=== PATIENT | female | born 1945 | race Caucasian/White ===

== ENCOUNTER 2021-01-15 23:00 | Emergency (ER) | payer MEDICARE, SELFPAY ==
--- NOTE | ~2021-01-15 | XR_ITS ---
EXAMINATION: XR CHEST CLINICAL INFORMATION: Productive cough COMPARISON: None TECHNIQUE: 2 views of the chest were obtained. FINDINGS: Lung volumes are symmetric. No focal consolidation is seen. Coarsened appearance of the interstitium is noted. No evidence of pneumothorax or significant pleural effusion. The cardiomediastinal contour is unremarkable. Degenerative changes are noted in the spine. XR/XR chest 2V IMPRESSION: No focal consolidation. Coarsened appearance of the interstitium which could reflect underlying chronic airways disease or potentially interstitial/atypical infection in the proper clinical setting.
[2021-01-16 00:27] VITALS: BP 182/77; PULSE 100; RESP 16; TEMP 36.7; O2SAT 93; BMI 21.9
--- NOTE | 2021-01-16 01:51 | ECG_ITS ---
Test Reason : SHORTNESS OF BREATH Blood Pressure : / mmHG Vent. Rate : 000 BPM Atrial Rate : 000 BPM P-R Int : 000 ms QRS Dur : 000 ms QT Int : 000 ms P-R-T Axes : 000 000 000 degrees QTc Int : 000 ms No QRS complexes found, no ECG analysis possible When compared with ECG of 16-JUN-2011 10:24, Current undetermined rhythm precludes rhythm comparison, needs review Referred By: Keyana Webber Electronically Signed By:
--- NOTE | 2021-01-16 01:52 | ED.URI ---
HPI - URI/Sore Throat General Chief Complaint: Upper Respiratory Symptoms Stated Complaint: Cough/Leg swelling Time Seen by Provider: 01/16/21 01:50 Source: patient Mode of arrival: ambulatory History of Present Illness HPI Narrative: 75-year-old female significant past medical history of hypertension who presents with 3 days of persistent coughing that she states she is unable to control and is productive of yellowish sputum without associated fever, chills, but patient states she has mild sore throat and states she is only having chest pain while coughing but otherwise does not have chest pain or palpitations and has been experiencing a decrease in appetite but denies any nausea, vomiting, abdominal discomfort/diarrhea and denies any urinary pain/burning/frequency. She denies any previous history of COPD/smoking history and states she that she has noted some mild swelling to bilateral ankles. Related Data Previous Rx's Medication Instructions Recorded lisinopril 20 mg tablet 20 mg PO DAILY 90 Days #90 tab 08/23/20 benzonatate [Tessalon Perles] 100 mg PO TID PRN #10 cap 01/16/21 doxycycline hyclate 100 mg PO BID 5 Days #10 cap 01/16/21 Allergies Allergy/AdvReac Type Severity Reaction Status Date / Time No Known Drug Allergies Allergy Unknown NONE Verified 08/23/20 11:11 [NO KNOWN DRUG ALLERGIES] Review of Systems Review of Systems: Pertinent positives and negatives as stated in HPI 10 point review of systems is otherwise negative. [facility] Past Medical History Source: nursing notes reviewed Medical History Benign essential hypertension Chronic kidney disease (CKD), stage III (moderate) History of seborrheic keratosis Pure hypercholesterolemia Surgical History No pertinent past surgical history Family History Family History Father No problems noted. Mother No problems noted. Brother In good health Son In good health Daughter In good health Social History Social History Alcohol intake: current Alcohol intake frequency: holidays/special occasions only Alcohol type: wine Advance Directives: No Advance Directives Information Provided: No Physical Exam Vital Signs: Vital Signs: Last Vital Signs Temp 98.0 F 01/16/21 00:27 Pulse 100 01/16/21 00:27 Resp 16 01/16/21 00:27 BP 182/77 H 01/16/21 00:27 Pulse Ox 93 01/16/21 00:27 Body Mass Index 21.9 VITAL SIGNS: Reviewed. GENERAL: Well developed, well nourished, in no acute distress. HEAD: Normocephalic/atraumatic EYES: PERRLA, EOMI EARS: Ext canals without abnormality, TMs non-bulging and non-erythematous NOSE: Nares patent bilateral OROPHARYNX: no oral lesions noted, posterior pharynx clear erythematous without noted tonsillar enlargement/erythema/exudates NECK: Supple, no adenopathy LUNGS: Normal breath sounds. No adventitious sounds or accessory muscle use. SpO2<93> CARDIOVASCULAR: Regular rate and rhythm without noted murmurs, no JVD but 1+ pitting edema to bilateral ankles ABDOMEN: Soft, non-tender, non-distended with bowel sounds. SKIN: Inspection of the skin reveals no rashes NEUROLOGIC: Alert and oriented x 4. Strength and sensation to light touch were grossly intact x 4. Course Course Course Narrative: 75-year-old female with history and clinical presentation consistent with viral syndrome, pneumonia. Review of all investigations and on re-evaluation there are acute findings of leukocytosis with chest x-ray findings in conjunction with patient's clinical exam and history suggestive of community-acquired pneumonia. Patient had received all COVID-19 vaccines and is not hypoxic or tachypneic. On re-evaluation patient is feeling better after having received cough suppressants as well as Tylenol. She is receiving initial dose of antibiotics here in the emergency room and then will be discharged with remaining course and instructions follow-up with primary care provider. MDM - URI/Sore Throat Lab Data Result diagrams: 01/16/21 02:58 01/16/21 02:58 Labs: Lab Results 01/16/21 01/16/21 01/16/21 Range/Units 02:58 02:58 02:58 WBC 12.2 H (4.8-10.8) X10*3/uL RBC 4.40 (4.20-5.50) X10*6/uL Hgb 12.8 (12.0-16.0) g/dl Hct 38.5 (37-47) % MCV 87.5 (80-98) fL MCH 29.1 (27.0-33.0) pg MCHC 33.2 (31.0-35.0) g/dl RDW 12.9 (11.0-16.0) % Plt Count 231 (160-400) X10*3/uL MPV 10.1 (9.4-12.3) fL Immature Gran % (Auto) 0.9 H (0.0-0.4) % Neut % (Auto) 77.4 H (45-73) % Lymph % (Auto) 13.1 L (20-40) % [place] % (Auto) 7.6 (2-11) % Eos % (Auto) 0.8 (0-4) % Baso % (Auto) 0.2 (0-2) % Lymph # (Auto) 1.6 (1.2-4.9) X10*3/uL [place] # (Auto) 0.9 (0.1-1.2) X10*3/uL Eos # (Auto) 0.1 (0.0-0.4) X10*3/uL Baso # (Auto) 0.0 (0.0-0.2) X10*3/uL Abs Immat Gran (auto) 0.11 H (0.00-0.03) X10*3/uL Absolute Neuts (auto) 9.4 H (2.0-8.3) X10*3/uL Absolute Nucleated RBC 0.000 (0.0-0.012) X10*3/uL Nucleated RBC % (auto) 0.0 (0.0-0.2) /100WBC Sodium 140 (135-145) mmol/L Potassium 3.6 (3.3-5.1) mmol/L Chloride 100 (96-108) mmol/L Carbon Dioxide 30 H (22-29) mmol/L Anion Gap 14 (12-20) BUN 12 (9-16) mg/dL Creatinine 0.79 (0.5-1.4) mg/dL Estim Creat Clear Calc 47.1 Estimated GFR > 60 Random Glucose 102 (60-115) mg/dL Calcium 9.0 (8.4-10.2) mg/dL Total Bilirubin 0.7 (0.0-1.0) mg/dL AST 25 (5-31) U/L ALT 23 (0-31) U/L Alkaline Phosphatase 99 (39-117) U/L Troponin I High Sens 7.2 (<3.5-17.0) ng/L B-Natriuretic Peptide < 10 (<100) pg/mL Total Protein 6.0 L (6.5-8.0) g/dL Albumin 3.4 L (3.5-5.0) g/dL ECG Data Attestation: I personally reviewed and interpreted this ECG as follows: Prior ECG tracings: available for review (06/16/2011 no acute changes on comparison) Interpretation: Sinus rhythm with PACs, HR-94, no STEMI, NC/QRS/QTC are within normal limits. Discharge Plan Discharge Clinical Impression: Community acquired pneumonia Patient Disposition: Home, Self-Care Instructions: Community Acquired Pneumonia (ED) Additional Instructions: 1. Resume all home medications as prescribed. 2. Continue to increase hydration especially with water. 3. Follow-up with your primary care provider in the next 1-2 days for re-evaluation and further outpatient management. 4. Recommend cool mist humidifier at the bedside during the night while sleeping. Return to the ER should you experience any worsening symptoms. Prescriptions: New doxycycline hyclate 100 mg capsule 100 mg PO BID 5 Days Qty: 10 RF: 0 benzonatate [Tessalon Perles] 100 mg capsule 100 mg PO TID PRN (Reason: cough) Qty: 10 RF: 0 No Action lisinopril 20 mg tablet 20 mg PO DAILY 90 Days Qty: 90 RF: 3 Referrals: Andrea Ruiz MD [Primary Care Provider] - 2 days (Re-evaluation for suspected community-acquired pneumonia, started on doxycycline.)
[2021-01-16 03:04] LABS: MANUAL DIFF FLAG NO
[2021-01-16 03:05] LABS: Basophils Percent Auto 0.2 % (0-2); Eosinophils Absolute Auto 0.1 X10*3/uL (0.0-0.4); Eosinophils Percent Auto 0.8 % (0-4); Hematocrit 38.5 % (37-47); Hemoglobin 12.8 g/dl (12.0-16.0); Imm Gran Abs Auto 0.11 X10*3/uL (0.00-0.03); Imm Gran Pct Auto 0.9 % (0.0-0.4); Lymphocytes Absolute Auto 1.6 X10*3/uL (1.2-4.9); Lymphocytes Percent Auto 13.1 % (20-40); Mean Corpuscular HGB Conc 33.2 g/dl (31.0-35.0); Mean Corpuscular Hemoglobin 29.1 pg (27.0-33.0); Mean Corpuscular Volume 87.5 fL (80-98); Mean Platelet Volume 10.1 fL (9.4-12.3); Monocytes Absolute Auto 0.9 X10*3/uL (0.1-1.2); Monocytes Percent Auto 7.6 % (2-11); Neutrophils Absolute Auto 9.4 X10*3/uL (2.0-8.3); Neutrophils Percent Auto 77.4 % (45-73); Platelet Count 231 X10*3/uL (160-400); Red Cell Distribution Width 12.9 % (11.0-16.0); White Blood Count 12.2 X10*3/uL (4.8-10.8)
[2021-01-16 03:40] LABS: B Type Natriuretic Peptide < 10 pg/mL (<100); Troponin-I High Sensitivity 7.2 ng/L (<3.5-17.0)
[2021-01-16] MEDS: Benzonatate 100 MG CAPSULE PO (03:45)
[2021-01-16 04:03] LABS: Alanine Aminotransferase 23 U/L (0-31); Albumin Level 3.4 g/dL (3.5-5.0); Alkaline Phosphatase 99 U/L (39-117); Anion Gap 14 (12-20); Aspartate Amino Transferase 25 U/L (5-31); Bilirubin Total 0.7 mg/dL (0.0-1.0); Blood Urea Nitrogen 12 mg/dL (9-16); Carbon Dioxide 30 mmol/L (22-29); Chloride 100 mmol/L (96-108); Creatinine Clr Calc Pharmacy 47.1; Estimated Glomerular Filt Rate > 60; Glucose Random 102 mg/dL (60-115); Potassium 3.6 mmol/L (3.3-5.1); Sodium 140 mmol/L (135-145)
[2021-01-16] MEDS: Acetaminophen 325 MG TABLET 975 MG PO (05:55)
== END 2021-01-16 05:57 | disposition home or self-care (01) ==
PROVIDERS: Emergency Provider Student in an Organized Health Care Education/Training Program; PCP Internal Medicine
DX: J18.9 Pneumonia, unspecified organism (principal); I12.9 Hypertensive chronic kidney disease with stage 1 through stage 4 chronic kidney disease, or unspecified chronic kidney disease; N18.30 Chronic kidney disease, stage 3 unspecified; Z79.899 Other long term (current) drug therapy
CPT/HCPCS: 36415; 71046; 80053; 83880; 84484; 85025; 93005; 99283

== ENCOUNTER 2021-02-13 10:25 | Outpatient (REF) | payer MEDICARE, SELFPAY ==
[2021-02-13 11:22] LABS: MANUAL DIFF FLAG NO
[2021-02-13 11:34] LABS: Basophils Percent Auto 0.5 % (0-2); Eosinophils Absolute Auto 0.4 X10*3/uL (0.0-0.4); Eosinophils Percent Auto 6.3 % (0-4); Hematocrit 43.1 % (37-47); Imm Gran Abs Auto 0.03 X10*3/uL (0.00-0.03); Imm Gran Pct Auto 0.5 % (0.0-0.4); Lymphocytes Absolute Auto 2.2 X10*3/uL (1.2-4.9); Lymphocytes Percent Auto 34.2 % (20-40); Mean Corpuscular HGB Conc 32.5 g/dl (31.0-35.0); Mean Corpuscular Hemoglobin 29.2 pg (27.0-33.0); Mean Corpuscular Volume 89.8 fL (80-98); Monocytes Absolute Auto 0.5 X10*3/uL (0.1-1.2); Monocytes Percent Auto 8.5 % (2-11); Neutrophils Absolute Auto 3.2 X10*3/uL (2.0-8.3); Platelet Count 191 X10*3/uL (160-400); Red Cell Distribution Width 13.6 % (11.0-16.0); White Blood Count 6.4 X10*3/uL (4.8-10.8)
[2021-02-13 11:35] LABS: Glucose Urine UA NEG (NEG); Leukocyte Esterase Urine 1+ (NEG); Nitrite Urine NEG (NEG); UACC Culture Trigger YES; Urine Blood TRACE (NEG); Urine Ketones NEG (NEG); Urine Protein NEG (NEG-TRACE)
[2021-02-13 11:38] LABS: Appearance Urine CLEAR; Color Urine YELLOW
[2021-02-13 11:46] LABS: Mucus Urine TRACE /LPF; RBC Urine 0-2 /HPF (0); Squamous Epithelial Cell Urine TRACE /LPF; WBC Urine 0-2 /HPF (0-4)
[2021-02-13 12:43] LABS: Alanine Aminotransferase 12 U/L (0-31); Alkaline Phosphatase 67 U/L (39-117); Anion Gap 13 (12-20); Aspartate Amino Transferase 18 U/L (5-31); Blood Urea Nitrogen 12 mg/dL (9-16); Calcium 9.4 mg/dL (8.4-10.2); Carbon Dioxide 28 mmol/L (22-29); Chloride 105 mmol/L (96-108); Cholesterol 207 mg/dL; Estimated Glomerular Filt Rate > 60; Glucose Fasting 94 mg/dL (60-99); HDL Cholesterol 50 mg/dL; LDL Cholesterol Calculated 144 mg/dl; Potassium 4.1 mmol/L (3.3-5.1); Sodium 142 mmol/L (135-145); Total Protein 6.6 g/dL (6.5-8.0); Triglycerides 66 mg/dL
== END 2021-02-13 10:26 | disposition home or self-care (01) ==
LOC: HO.LAB 10:25
PROVIDERS: PCP Internal Medicine; Visit Provider Internal Medicine
DX: I12.9 Hypertensive chronic kidney disease with stage 1 through stage 4 chronic kidney disease, or unspecified chronic kidney disease (principal); N18.31 Chronic kidney disease, stage 3a; E78.00 Pure hypercholesterolemia, unspecified
CPT/HCPCS: 36415; 80053; 80061; 81001; 84443; 85025; 87086; 87147

== ENCOUNTER 2021-08-07 10:54 | Outpatient (REF) | payer MEDICARE, SELFPAY ==
[2021-08-07 12:01] LABS: Appearance Urine CLEAR; Color Urine YELLOW; Glucose Urine UA NEG (NEG); Leukocyte Esterase Urine TRACE (NEG); Nitrite Urine NEG (NEG); UACC Culture Trigger YES; Urine Blood TRACE (NEG); Urine Ketones NEG (NEG); Urine Protein NEG (NEG-TRACE)
[2021-08-07 12:09] LABS: Bacteria Urine TRACE /LPF; Mucus Urine 1+ /LPF; Squamous Epithelial Cell Urine 1+ /LPF
[2021-08-07 12:44] LABS: Vitamin D 25-OH Total 21.2 ng/mL (>30)
[2021-08-07 12:48] LABS: Alanine Aminotransferase 14 U/L (0-31); Alkaline Phosphatase 67 U/L (39-117); Anion Gap 10 (12-20); Aspartate Amino Transferase 20 U/L (5-31); Bilirubin Total 0.9 mg/dL (0.0-1.0); Carbon Dioxide 31 mmol/L (22-29); Chloride 106 mmol/L (96-108); Cholesterol 195 mg/dL; Estimated Glomerular Filt Rate > 60; Glucose Fasting 98 mg/dL (60-99); HDL Cholesterol 51 mg/dL; LDL Cholesterol Calculated 127 mg/dl; Potassium 4.1 mmol/L (3.3-5.1); Sodium 143 mmol/L (135-145); Total Protein 6.3 g/dL (6.5-8.0); Triglycerides 86 mg/dL
[2021-08-07 15:47] LABS: Blood Urea Nitrogen 13 mg/dL (9-16); Calcium 9.8 mg/dL (8.4-10.2)
== END 2021-08-07 10:55 | disposition home or self-care (01) ==
LOC: HO.LAB 10:54
PROVIDERS: PCP Internal Medicine; Visit Provider Internal Medicine
DX: E78.00 Pure hypercholesterolemia, unspecified (principal); E55.9 Vitamin D deficiency, unspecified
CPT/HCPCS: 36415; 80053; 80061; 81001; 81003; 82306; 87086

== ENCOUNTER 2021-10-23 11:01 | Outpatient (REF) | payer MEDICARE, SELFPAY ==
--- NOTE | ~2021-10-23 | MM_ITS ---
EXAMINATION: MM SCREENING DIGITAL BREAST TOMOSYNTHESIS, BILATERAL CLINICAL INFORMATION: Screening. Asymptomatic. Family history breast cancer, daughter. The lifetime risk of breast cancer based on the Tyrer-Cuzick Model is 4%. COMPARISON: Mammography: 06/24/2019, 06/18/2018, 05/27/2017 TECHNIQUE: Digital breast tomosynthesis is performed in both the craniocaudal and mediolateral oblique views along with computer-aided detection (CAD). Synthesized 2D images are generated from the tomosynthesis. FINDINGS: There are scattered areas of fibroglandular density (ACR BI-RADS breast composition Category b). There are no significant masses, abnormal calcifications, or other abnormalities. No developing density or architectural abnormality. No significant changes. MM/MM tomosynthesis screening BI IMPRESSION: No mammographic evidence of malignancy. ASSESSMENT: BI-RADS 1: Negative RECOMMENDATION: Routine annual mammography screening. This patient's information was entered into a reminder system with a target due date for their next mammogram.
== END 2021-10-23 11:02 | disposition home or self-care (01) ==
LOC: HO.MAMMO 11:01
PROVIDERS: Visit Provider Internal Medicine
DX: Z12.31 Encounter for screening mammogram for malignant neoplasm of breast (principal)
CPT/HCPCS: 77063; 77067

== ENCOUNTER 2021-11-27 10:09 | Outpatient (REF) | payer MEDICARE, SELFPAY ==
[2021-11-27 12:09] LABS: Alanine Aminotransferase 14 U/L (0-31); Alkaline Phosphatase 68 U/L (39-117); Anion Gap 11 (12-20); Aspartate Amino Transferase 19 U/L (5-31); Bilirubin Total 0.7 mg/dL (0.0-1.0); Blood Urea Nitrogen 14 mg/dL (9-16); Calcium 9.6 mg/dL (8.4-10.2); Carbon Dioxide 30 mmol/L (22-29); Chloride 105 mmol/L (96-108); Cholesterol 191 mg/dL; Estimated Glomerular Filt Rate > 60; Glucose Fasting 95 mg/dL (60-99); HDL Cholesterol 53 mg/dL; LDL Cholesterol Calculated 121 mg/dl; Potassium 4.1 mmol/L (3.3-5.1); Sodium 142 mmol/L (135-145); Total Protein 6.4 g/dL (6.5-8.0); Triglycerides 88 mg/dL
[2021-11-27 12:20] LABS: TSH reflex Free T4 1.77 uIU/mL (0.32-4.0); Vitamin D 25-OH Total 23.9 ng/mL (>30)
== END 2021-11-27 10:10 | disposition home or self-care (01) ==
LOC: HO.LAB 10:09
PROVIDERS: PCP Internal Medicine; Visit Provider Nurse Practitioner Family
DX: E78.00 Pure hypercholesterolemia, unspecified (principal); I12.9 Hypertensive chronic kidney disease with stage 1 through stage 4 chronic kidney disease, or unspecified chronic kidney disease; N18.9 Chronic kidney disease, unspecified; Z13.29 Encounter for screening for other suspected endocrine disorder
CPT/HCPCS: 36415; 80053; 80061; 82306; 84443

== ENCOUNTER 2022-03-11 10:48 | Outpatient (REF) | payer MEDICARE, SELFPAY ==
[2022-03-11 12:58] LABS: Vitamin D 25-OH Total 36.1 ng/mL (>30)
== END 2022-03-11 10:49 | disposition home or self-care (01) ==
LOC: HO.LAB 10:48
PROVIDERS: Nurse Practitioner Family; PCP Internal Medicine; Visit Provider Internal Medicine
DX: R79.89 Other specified abnormal findings of blood chemistry (principal)
CPT/HCPCS: 36415; 82306

== ENCOUNTER 2022-05-01 22:43 | Inpatient (IN) | payer MEDICARE, SELFPAY ==
--- NOTE | ~2022-05-01 | CT_ITS ---
EXAMINATION: NONCONTRAST AND CONTRAST-ENHANCED CT OF THE ABDOMEN AND PELVIS GI BLEED INDICATION: Left lower quadrant pain, question GI bleed COMPARISON: None TECHNIQUE: 80 mL Omnipaque 350 IV contrast was utilized. Multidetector helical imaging was performed through the abdomen and pelvis prior to and following contrast administration per GI bleed protocol. Coronal and sagittal reformatted images were created at the technologist workstation. DLP: 862 mGy-cm DOSE LOWERING TECHNIQUES: This CT examination was performed using dose optimization techniques as appropriate, variously including the following: - Automated exposure control - Adjustment of mA and/or kV according to patient size (this includes techniques or standardized protocols for targeted exams were dose is matched to indication/reason for exam; i.e. extremities or head) - Use of iterative reconstruction technique FINDINGS: The lung bases are clear. The liver is homogeneous in attenuation without intrahepatic biliary ductal dilatation. The gallbladder is unremarkable. The spleen, pancreas, and adrenal glands are within normal limits. Bilateral nephrograms are symmetric. No hydronephrosis. No obstructing renal or ureteral calculi are present. The urinary bladder is unremarkable. The uterus and adnexa are unremarkable. There is a prominent thick-walled appearance of the distal transverse colon and entire descending colon with surrounding stranding, consistent with colitis. On postcontrast imaging there is diffuse mucosal enhancement throughout this inflamed colon, which limits evaluation for possible superimposed active bleeding. There may be an additional inflamed segment of collapsed ascending colon. Sigmoid colon diverticula are noted. No evidence of bowel obstruction. The appendix is unremarkable. No free fluid or free air is present. There is atherosclerotic calcification along the aorta and iliac arteries. There is multifocal dilation of the infrarenal aorta up to 2.7 cm. No retroperitoneal or pelvic lymphadenopathy is seen. Degenerative changes are noted in the spine. CT/CT gi bleed abd pel wo/w IVcon IMPRESSION: 1. Prominent inflammation extending from the distal transverse colon to the distal descending colon, consistent with colitis. There is diffuse mucosal enhancement throughout this region on postcontrast imaging, which limits evaluation for possible superimposed active hemorrhage. 2. Thick-walled segment of collapsed ascending colon, which may also reflect a segment of colitis. However, correlation with recent or follow-up colonoscopy is advised to exclude an underlying mass lesion.
[2022-05-01 23:05] VITALS: BP 189/82; PULSE 96; RESP 17; TEMP 36.8; O2SAT 99; BMI 21.2
[2022-05-01 23:16] LABS: MANUAL DIFF FLAG NO
[2022-05-01 23:18] LABS: Basophils Percent Auto 0.2 % (0-2); Eosinophils Percent Auto 0.2 % (0-4); Hematocrit 46.2 % (37.0-47.0); Hemoglobin 14.9 g/dl (12.0-16.0); Imm Gran Abs Auto 0.06 X10*3/uL (0.00-0.03); Imm Gran Pct Auto 0.5 % (0.0-0.4); Lymphocytes Absolute Auto 1.7 X10*3/uL (1.2-4.9); Lymphocytes Percent Auto 13.1 % (20-40); Mean Corpuscular HGB Conc 32.3 g/dl (31.0-35.0); Mean Corpuscular Hemoglobin 28.8 pg (27.0-33.0); Mean Corpuscular Volume 89.2 fL (80.0-98.0); Mean Platelet Volume 10.1 fL (9.4-12.3); Monocytes Absolute Auto 0.6 X10*3/uL (0.1-1.2); Monocytes Percent Auto 4.2 % (2-11); Neutrophils Absolute Auto 10.9 x10*3/uL (2.0-8.3); Neutrophils Percent Auto 81.8 % (45-73); Platelet Count 178 X10*3/uL (160-400); Red Blood Count 5.18 X10*6/uL (4.20-5.50); Red Cell Distribution Width 13.2 % (11.0-16.0); White Blood Count 13.3 X10*3/uL (4.8-10.8)
--- NOTE | 2022-05-01 23:35 | ED_ITS ---
HPI - General Adult General Chief complaint: GI Bleed Stated complaint: ?Vaginal bleeding Time Seen by Provider: 05/01/22 23:18 Source: patient Limitations: no limitations History of Present Illness HPI narrative: This is a 76-year-old female who passed a number of clots this evening, some of them half dollar sized. The patient has OC of left lower quadrant abdominal pain. The patient thought the clots were passed via her vagina. She does not think that she passed them via her rectum. She did have an episode of feeling lightheaded. She denies any chest pain or shortness of breath. She is not on any blood thinners. She denies any prior history of GI bleed. She has no history of hysterectomy or oophorectomy. Related Data Previous Rx's Medication Instructions Recorded lisinopril 30 mg tablet 30 mg PO DAILY #90 tabs 01/24/22 amlodipine 5 mg tablet 5 mg PO DAILY 90 days #90 tabs 03/19/22 cholecalciferol (vitamin D3) 25 25 mcg PO DAILY 90 days #90 tabs 03/19/22 mcg (1,000 unit) tablet Allergies Allergy/AdvReac Type Severity Reaction Status Date / Time No Known Drug Allergies Allergy Unknown NONE Verified 05/01/22 23:08 [NO KNOWN DRUG ALLERGIES] Review of Systems Review of Systems: Yes all other systems are reviewed and are negative Constitutional: Constitutional: Reports as per HPI and Denies fever(s) Eyes: Eyes: Reports as per HPI and Reports no additional eye complaints ENT: Reports system reviewed and no additional complaints, except as documented, Reports as per HPI, Denies nasal congestion, Denies nasal discharge and Denies sore throat Cardiovascular: Cardiovascular: Reports as per HPI, Denies chest pain and Denies dyspnea Respiratory: Respiratory: Reports as per HPI, Denies cough and Denies dyspnea Gastrointestinal: Gastrointestinal: Reports as per HPI, Reports abdominal pain (Left lower quadrant), Denies diarrhea and Denies vomiting Genitourinary: Genitourinary: Reports as per HPI, Denies hematuria, Denies urinary frequency and Denies dysuria Musculoskeletal: Musculoskeletal: Reports no additional musculoskeletal complaints and Denies numbness Integumentary/Breasts: Skin/Breast: Reports as per HPI and Denies rash Neurologic: Reports as per HPI, Denies focal weakness and Denies numbness Psychiatric: Psychiatric: Reports no additional psychiatric complaints and Reports as per HPI Endocrine: Endocrine: Reports no additional endocrine complaints and Reports as per HPI Hematologic/Lymphatic: Hematologic/Lymphatic: Reports no additional hematologic/lymphatic complaints, Reports as per HPI and Reports other (No peripheral edema) [facility] Past Medical History Medical History (Updated 05/02/22 @ 01:16 by John Nice MD) Benign essential hypertension Chronic kidney disease Chronic kidney disease (CKD), stage III (moderate) History of seborrheic keratosis Otitis media of left ear Pure hypercholesterolemia Vitamin D deficiency Surgical History No pertinent past surgical history Family History Family History Father No problems noted. Mother No problems noted. Brother In good health Son In good health Daughter In good health Social History Social History Housing: House Alcohol intake: current Alcohol intake frequency: holidays/special occasions only Alcohol type: wine Patient Tobacco Use Status: Never used Tobacco e-Cigarette/Vaping Use: Never Used Second Hand Smoke Exposure: Yes Advance Directives: No Advance Directives Information Provided: Yes service: No Current occupational status: retired Cognitive needs: No Hearing needs: No Vision needs: Yes Physical Exam ED Vital Signs: Vital Signs - 24 hr 05/01/22 23:05 05/02/22 02:18 Temperature 98.2 F 98.1 F Pulse Rate 96 88 Respiratory Rate 17 16 Blood Pressure 189/82 H 169/86 H Pulse Oximetry 99 97 Oxygen Delivery Method Room Air Room Air BMI result Body Mass Index 21.2 Const General: no acute distress Orientation/consciousness: patient oriented x3 HENMT Head: Yes normal to inspection General nose exam: Normal external nose present Mouth: moist mucous membranes Throat: Yes posterior oropharynx normal, Yes tonsils normal and Yes uvula midline Eyes Eyelids: Yes eyelids normal Conjunctivae: conjunctivae normal Pupils: Equal, round and reactive pupils present Neck Neck: Yes supple Resp Effort & Inspection: normal respiratory effort Auscultation: clear to auscultation bilaterally Cardio Rate: regular rate Rhythm: regular rhythm Heart sounds: S1 normal heart sound present, S2 normal heart sound present, no gallops, no murmurs and no rubs GI Inspection: No distended Palpation (GI): Soft to palpation and nontender Auscultation: normal bowel sounds Rectal Exam - Female: visual inspection normal and heme positive stool (Dark red blood evident on rectal exam) Rectal exam heme positive - female: gross blood External Female Exam: normal external appearance Bimanual exam- vagina & uterus: other (No blood in the vagina) Skin General skin exam: other (Warm and dry) Neuro General: patient oriented x3 and CN's II-XI intact bilaterally Cranial nerves: Yes Equal, round and reactive pupils present Extrem General: Yes no pedal edema Psych Affect: normal affect Attitude: cooperative Medical Decision Making MDM Narrative Medical decision making narrative: Patient with acute onset of lower GI bleeding this evening, repeated the passing clots. Patient also has associated left lower quadrant pain. Possible diverticular bleeding. H&H normal. White blood cell count mildly elevated at 13. CT scan of the abdomen and pelvis, GI bleed protocol pending. Case was discussed with Dr. Diop who agreed with admission to the hospital unless there is evidence of brisk bleeding on CT. The patient has had repeat episodes of passing blood when she has gone to the bathroom here in the ED. vital signs remained stable and her repeat hemoglobin and hematocrit are pending. Patient to be admitted to the hospitalist service. Lab Data Lab results reviewed: Yes I reviewed the patient's lab results. Result diagrams: 05/01/22 23:12 05/01/22 23:12 Labs: Lab Results 05/01/22 05/01/22 05/01/22 Range/Units 23:12 23:12 23:40 WBC 13.3 H (4.8-10.8) X10*3/uL RBC 5.18 (4.20-5.50) X10*6/uL Hgb 14.9 (12.0-16.0) g/dl Hct 46.2 (37.0-47.0) % MCV 89.2 (80.0-98.0) fL MCH 28.8 (27.0-33.0) pg MCHC 32.3 (31.0-35.0) g/dl RDW 13.2 (11.0-16.0) % Plt Count 178 (160-400) X10*3/uL MPV 10.1 (9.4-12.3) fL Immature Gran % (Auto) 0.5 H (0.0-0.4) % Neut % (Auto) 81.8 H (45-73) % Lymph % (Auto) 13.1 L (20-40) % [place] % (Auto) 4.2 (2-11) % Eos % (Auto) 0.2 (0-4) % Baso % (Auto) 0.2 (0-2) % Lymph # (Auto) 1.7 (1.2-4.9) X10*3/uL [place] # (Auto) 0.6 (0.1-1.2) X10*3/uL Eos # (Auto) 0.0 (0.0-0.4) X10*3/uL Baso # (Auto) 0.0 (0.0-0.2) X10*3/uL Abs Immat Gran (auto) 0.06 H (0.00-0.03) X10*3/uL Absolute Neuts (auto) 10.9 H (2.0-8.3) x10*3/uL Absolute Nucleated RBC 0.000 (0.0-0.012) X10*3/uL Nucleated RBC % (auto) 0.0 (0.0-0.2) /100WBC PT (10.0-13.1) SEC INR (0.9-1.1) APTT (26.0-36.4) SEC Sodium 142 (135-145) mmol/L Potassium 4.1 (3.3-5.1) mmol/L Chloride 103 (96-108) mmol/L Carbon Dioxide 23 (22-29) mmol/L Anion Gap 20 (12-20) BUN 17 H (9-16) mg/dL Creatinine 1.02 (0.5-1.4) mg/dL Estim Creat Clear Calc 35.9 Estimated GFR 52 Random Glucose 126 H (60-115) mg/dL Calcium 9.7 (8.4-10.2) mg/dL Total Bilirubin 0.9 (0.0-1.0) mg/dL AST 23 (5-31) U/L ALT 16 (0-31) U/L Alkaline Phosphatase 77 (39-117) U/L Total Protein 7.3 (6.5-8.0) g/dL Albumin 4.6 (3.5-5.0) g/dL Urine Color Dark Yellow Urine Appearance Clear Urine pH 5.0 (5.0-9.0) Ur Specific [place] 1.020 (1.005-1.025) Urine Protein Trace (Neg-Trace) mg/dL Urine Glucose (UA) Negative (Negative) mg/dL Urine Ketones Trace (Negative) mg/dL Urine Blood Trace H (Negative) Urine Nitrite Negative (Negative) Ur Leukocyte Esterase Trace H (Negative) Urine RBC 0-2 (0-2) /HPF Urine WBC 0-5 (0-5) /HPF Ur Squamous Epith Cells 3-5 (0-2) /HPF Urine Bacteria None Seen (None Seen) Hyaline Casts 6-10 (0-2) /LPF Blood Type 05/02/22 05/02/22 Range/Units 01:50 01:50 WBC (4.8-10.8) X10*3/uL RBC (4.20-5.50) X10*6/uL Hgb (12.0-16.0) g/dl Hct (37.0-47.0) % MCV (80.0-98.0) fL MCH (27.0-33.0) pg MCHC (31.0-35.0) g/dl RDW (11.0-16.0) % Plt Count (160-400) X10*3/uL MPV (9.4-12.3) fL Immature Gran % (Auto) (0.0-0.4) % Neut % (Auto) (45-73) % Lymph % (Auto) (20-40) % [place] % (Auto) (2-11) % Eos % (Auto) (0-4) % Baso % (Auto) (0-2) % Lymph # (Auto) (1.2-4.9) X10*3/uL [place] # (Auto) (0.1-1.2) X10*3/uL Eos # (Auto) (0.0-0.4) X10*3/uL Baso # (Auto) (0.0-0.2) X10*3/uL Abs Immat Gran (auto) (0.00-0.03) X10*3/uL Absolute Neuts (auto) (2.0-8.3) x10*3/uL Absolute Nucleated RBC (0.0-0.012) X10*3/uL Nucleated RBC % (auto) (0.0-0.2) /100WBC PT 11.7 (10.0-13.1) SEC INR 1.0 (0.9-1.1) APTT 33.9 (26.0-36.4) SEC Sodium (135-145) mmol/L Potassium (3.3-5.1) mmol/L Chloride (96-108) mmol/L Carbon Dioxide (22-29) mmol/L Anion Gap (12-20) BUN (9-16) mg/dL Creatinine (0.5-1.4) mg/dL Estim Creat Clear Calc Estimated GFR Random Glucose (60-115) mg/dL Calcium (8.4-10.2) mg/dL Total Bilirubin (0.0-1.0) mg/dL AST (5-31) U/L ALT (0-31) U/L Alkaline Phosphatase (39-117) U/L Total Protein (6.5-8.0) g/dL Albumin (3.5-5.0) g/dL Urine Color Urine Appearance Urine pH (5.0-9.0) Ur Specific [place] (1.005-1.025) Urine Protein (Neg-Trace) mg/dL Urine Glucose (UA) (Negative) mg/dL Urine Ketones (Negative) mg/dL Urine Blood (Negative) Urine Nitrite (Negative) Ur Leukocyte Esterase (Negative) Urine RBC (0-2) /HPF Urine WBC (0-5) /HPF Ur Squamous Epith Cells (0-2) /HPF Urine Bacteria (None Seen) Hyaline Casts (0-2) /LPF Blood Type O Positive Discharge Plan Discharge Clinical Impression: Acute lower gastrointestinal bleeding Patient Disposition: Admitted As Inpatient
[2022-05-01 23:39] LABS: Alanine Aminotransferase 16 U/L (0-31); Albumin Level 4.6 g/dL (3.5-5.0); Alkaline Phosphatase 77 U/L (39-117); Anion Gap 20 (12-20); Aspartate Amino Transferase 23 U/L (5-31); Bilirubin Total 0.9 mg/dL (0.0-1.0); Blood Urea Nitrogen 17 mg/dL (9-16); Calcium 9.7 mg/dL (8.4-10.2); Carbon Dioxide 23 mmol/L (22-29); Chloride 103 mmol/L (96-108); Creatinine Clr Calc Pharmacy 35.9; Estimated Glomerular Filt Rate 52; Glucose Random 126 mg/dL (60-115); Potassium 4.1 mmol/L (3.3-5.1); Sodium 142 mmol/L (135-145); Total Protein 7.3 g/dL (6.5-8.0)
[2022-05-01] MEDS: 0.9 % Sodium Chloride 500 ML IV (23:46)
[2022-05-01 23:49] LABS: Appearance Urine Clear; Color Urine Dark Yellow; Glucose Urine UA Negative (Negative); Leukocyte Esterase Urine Trace (Negative); Nitrite Urine Negative (Negative); UMIC TRIGGER UACC YES; Urine Blood Trace (Negative); Urine Ketones Trace mg/dL (Negative); Urine Protein Trace mg/dL (Neg-Trace)
[2022-05-02 00:01] LABS: Bacteria Urine None Seen (None Seen); RBC Urine 0-2 /HPF (0-2); WBC Urine 0-5 /HPF (0-5)
[2022-05-02] MEDS: iohexoL 350 MG/ML 100 ML INFUS..BTL 80 ML IV (01:40)
[2022-05-02 02:04] LABS: Prothrombin Time 11.7 SEC (10.0-13.1)
[2022-05-02 02:07] LABS: Partial Thromboplastin Time 33.9 SEC (26.0-36.4)
[2022-05-02 02:18] VITALS: BP 169/86; PULSE 88; RESP 16; TEMP 36.7; O2SAT 97
[2022-05-02] MEDS: metroNIDAZOLE/NS 500 MG/100 ML PIGGYBACK 100 MG IV ×3 (02:53→20:30)
[2022-05-02] MEDS: Morphine Sulfate 2 MG/ML CARTRIDGE IVPUSH (02:54)
[2022-05-02] MEDS: Piperacillin Sodium/Tazobactam 3.375 GM in 0.9 % Sodium Chloride 50 ML IV (03:42)
[2022-05-02 03:48] LABS: Hematocrit 40.5 % (37.0-47.0); Hemoglobin 13.4 g/dl (12.0-16.0)
[2022-05-02 04:05] LABS: COVID-19 Test Negative (Negative)
--- NOTE | 2022-05-02 04:05 | P.HPHOSP_ITS ---
History of Present Illness Date of Service: 05/02/22 Chief Complaint: blood clots 76-year-old female with past medical history of hypertension, CKD stage 3, presents the hospital with complaints of blood per rectum as well as left quadrant abdominal pain. Patient reports that she was doing very well up until 17:00 when she started having urgency to move her bowels, when she went to the bathroom she had multiple blood clots, she has had several more episodes since presenting to the hospital. Immediately after she developed left quadrant abdominal pain that was about 8/10, nonradiating, constant, relieved with morphine. She felt very dizzy after the episodes. She denies any similar episodes in the past. She denies any chest pain, no shortness of breath, she has had nausea and 1 episode of vomiting. No urinary symptoms and no lower extremity edema. Patient reports no diarrhea and he was just bleeding from the rectum. On arrival to the ED patient hemodynamically stable with no significant abnormal vitals Labs are significant for WBC count of 13.3, hemoglobin of 14.9 the decreased to 13.4 on repeat while waiting admission, labs otherwise unremarkable, has a BUN of 17, UA is positive for leukocyte Estrace trace and some WBC. GFR of [address] shows prominent inflammation extending from the distal transverse colon to the distal descending colon consistent with colitis, there is diffuse mucosal enhancement throughout this region on postcontrast imaging which limits evaluation for possible superimposed active hemorrhage. The quell segment of collapse ascending colon which may also reflect a segment of colitis Patient reports she had a colonoscopy about 10 years ago which was normal. Review of Systems Review of Systems: Yes all other systems are reviewed and are negative [facility] Medical History Benign essential hypertension Chronic kidney disease Chronic kidney disease (CKD), stage III (moderate) History of seborrheic keratosis Otitis media of left ear Pure hypercholesterolemia Vitamin D deficiency Family History Father No problems noted. Mother No problems noted. Brother In good health Son In good health Daughter In good health Surgical History No pertinent past surgical history Social History Housing: House Alcohol intake: current Alcohol intake frequency: holidays/special occasions only Alcohol type: wine Patient Tobacco Use Status: Never used Tobacco e-Cigarette/Vaping Use: Never Used Second Hand Smoke Exposure: Yes Advance Directives: No Advance Directives Information Provided: Yes service: No Current occupational status: retired Cognitive needs: No Hearing needs: No Vision needs: Yes Meds Allergies Allergy/AdvReac Type Severity Reaction Status Date / Time No Known Drug Allergies Allergy Unknown NONE Verified 05/01/22 23:08 [NO KNOWN DRUG ALLERGIES] Active Medications: Current Medications Morphine Sulfate (Morphine Sulfate 2 Mg/Ml Cartridge) 2 mg IVPUSH Q5M PRN; Prot ocol PRN Reason: Chest Pain Last Admin: 05/02/22 02:54 Dose: 2 mg Physical Exam Vital Signs and Narrative: Vital Signs: Last Vital Signs Temp 98.1 F 05/02/22 02:18 Pulse 88 05/02/22 02:18 Resp 16 05/02/22 02:18 BP 169/86 H 05/02/22 02:18 Pulse Ox 97 05/02/22 02:18 O2 Del Method 05/02/22 02:18 BMI result Body Mass Index 21.2 Const: General: cooperative and no acute distress Orientation/consciousness: patient oriented x3 Eyes: General: appearance normal, both eyes and all related structures Resp: Effort & Inspection: normal respiratory effort Auscultation: clear to auscultation bilaterally Cardio: Rate: regular rate Rhythm: regular rhythm GI: Other: Abdomen is tender in the room left lower quadrant with no rebound or guarding Palpation (GI): Soft to palpation Auscultation: normal bowel sounds Skin: General skin exam: no rashes or lesions noted Neuro: General: patient oriented x3 Cognition (Neuro): normal cognition Extrem: General: Yes normal to inspection and Yes no pedal edema Results Labs CBC and Chem 7: 05/02/22 05:25 05/02/22 05:25 Labs: Laboratory Results - last 24 hr 05/01/22 05/01/22 05/01/22 23:12 23:12 23:40 MCV 89.2 MCH 28.8 MCHC 32.3 RDW 13.2 Plt Count 178 MPV 10.1 Immature Gran % (Auto) 0.5 H Neut % (Auto) 81.8 H Lymph % (Auto) 13.1 L [place] % (Auto) 4.2 Eos % (Auto) 0.2 Baso % (Auto) 0.2 Lymph # (Auto) 1.7 [place] # (Auto) 0.6 Eos # (Auto) 0.0 Baso # (Auto) 0.0 Abs Immat Gran (auto) 0.06 H Absolute Neuts (auto) 10.9 H Absolute Nucleated RBC 0.000 Nucleated RBC % (auto) 0.0 PT INR APTT Anion Gap 20 Estim Creat Clear Calc 35.9 Estimated GFR 52 Random Glucose 126 H Calcium 9.7 Total Bilirubin 0.9 AST 23 ALT 16 Alkaline Phosphatase 77 Total Protein 7.3 Albumin 4.6 Urine Color Dark Yellow Urine Appearance Clear Urine pH 5.0 Ur Specific [place] 1.020 Urine Protein Trace Urine Glucose (UA) Negative Urine Ketones Trace Urine Blood Trace H Urine Nitrite Negative Ur Leukocyte Esterase Trace H Urine RBC 0-2 Urine WBC 0-5 Ur Squamous Epith Cells 3-5 Urine Bacteria None Seen Hyaline Casts 6-10 Blood Type Antibody Screen 05/02/22 05/02/22 01:50 01:50 MCV MCH MCHC RDW Plt Count MPV Immature Gran % (Auto) Neut % (Auto) Lymph % (Auto) [place] % (Auto) Eos % (Auto) Baso % (Auto) Lymph # (Auto) [place] # (Auto) Eos # (Auto) Baso # (Auto) Abs Immat Gran (auto) Absolute Neuts (auto) Absolute Nucleated RBC Nucleated RBC % (auto) PT 11.7 INR 1.0 APTT 33.9 Anion Gap Estim Creat Clear Calc Estimated GFR Random Glucose Calcium Total Bilirubin AST ALT Alkaline Phosphatase Total Protein Albumin Urine Color Urine Appearance Urine pH Ur Specific [place] Urine Protein Urine Glucose (UA) Urine Ketones Urine Blood Urine Nitrite Ur Leukocyte Esterase Urine RBC Urine WBC Ur Squamous Epith Cells Urine Bacteria Hyaline Casts Blood Type O Positive Antibody Screen NEGATIVE Imaging Radiologist's Impressions: Impressions Abdomen/Pelvis CT 05/02/22 01:45 IMPRESSION: 1. Prominent inflammation extending from the distal transverse colon to the distal descending colon, consistent with colitis. There is diffuse mucosal enhancement throughout this region on postcontrast imaging, which limits evaluation for possible superimposed active hemorrhage. 2. Thick-walled segment of collapsed ascending colon, which may also reflect a segment of colitis. However, correlation with recent or follow-up colonoscopy is advised to exclude an underlying mass lesion. Assessment and Plan (1) Acute lower gastrointestinal bleeding: Status: Acute (2) Acute colitis: Status: Acute Plan 76-year-old female with past medical history of hypertension presents to the hospital with complaints of blood per rectum as well as lower quadrant abdominal pain # acute lower gastrointestinal bleeding - likely secondary to acute colitis - CT evidence of extensive colitis as above - at this time patient hemodynamically stable, hemoglobin has remained stable - will keep NPO, GI consulted GI consulted - follow CBC, with threshold to transfuse at hemoglobin less than 7 # acute colitis - inflammatory versus infectious - no previous history of inflammatory bowel disease - hemodynamically stable, lactic acid pending - will treat with IV antibiotics - GI panel, C diff- although denies diarrhea - GI consulted # hypertension - stable - resume home medications # CKD stage 3 - stable - continue to follow BMP DVT prophylaxis: SCDs Given patient's acute GI bleed, as well as acute colitis requiring IV antibiotics patient will require minimum 2 night inpatient hospital stay for further management evaluation Quality Stroke Does the patient have a stroke diagnosis?: No VTE Prior VTE?: No VTE Risk Level:: Medical - moderate - high VTE Device Contraindication: N/A - Device Ordered VTE Drug Contraindication: Treatment Not Indicated
[2022-05-02 05:37] LABS: MANUAL DIFF FLAG NO
[2022-05-02 05:38] LABS: Basophils Percent Auto 0.3 % (0-2); Eosinophils Absolute Auto 0.1 X10*3/uL (0.0-0.4); Eosinophils Percent Auto 0.4 % (0-4); Hematocrit 41.1 % (37.0-47.0); Hemoglobin 13.5 g/dl (12.0-16.0); Imm Gran Abs Auto 0.06 X10*3/uL (0.00-0.03); Imm Gran Pct Auto 0.5 % (0.0-0.4); Lymphocytes Absolute Auto 1.9 X10*3/uL (1.2-4.9); Lymphocytes Percent Auto 16.3 % (20-40); Mean Corpuscular HGB Conc 32.8 g/dl (31.0-35.0); Mean Corpuscular Volume 88.2 fL (80.0-98.0); Mean Platelet Volume 10.1 fL (9.4-12.3); Monocytes Absolute Auto 0.8 X10*3/uL (0.1-1.2); Monocytes Percent Auto 6.3 % (2-11); Neutrophils Absolute Auto 9.1 x10*3/uL (2.0-8.3); Neutrophils Percent Auto 76.2 % (45-73); Platelet Count 155 X10*3/uL (160-400); Red Blood Count 4.66 X10*6/uL (4.20-5.50); Red Cell Distribution Width 13.2 % (11.0-16.0); White Blood Count 11.9 X10*3/uL (4.8-10.8)
[2022-05-02] MEDS: cefTRIAXone sodium 1 GM in 0.9 % Sodium Chloride 50 ML IV (05:42)
[2022-05-02 05:54] LABS: Anion Gap 16 (12-20); Blood Urea Nitrogen 14 mg/dL (9-16); Calcium 8.7 mg/dL (8.4-10.2); Carbon Dioxide 22 mmol/L (22-29); Chloride 108 mmol/L (96-108); Creatinine Clr Calc Pharmacy 46.4; Estimated Glomerular Filt Rate > 60; Glucose Random 101 mg/dL (60-115); Sodium 142 mmol/L (135-145)
--- NOTE | 2022-05-02 05:55 | PC.NURSE ---
Medicated per Aug, Notified RN
[2022-05-02 06:43] LABS: Lactic Acid 0.8 mmol/L (0.5-2.0)
--- NOTE | 2022-05-02 07:00 | PC.NURSE ---
Addendum entered by Alexus Martinez 05/02/22 12:31: Diet order changed to clear liquids. pt tolerating po at this time. permission given to update son on phone Original Note: Pt resting in ED stretcher. Offers no complaints. IV patent. Pt NPO at this time.
[2022-05-02] MEDS: Lactated Ringers 1,000 ML 100 ML IVCONT ×2 (07:15→17:02)
[2022-05-02] MEDS: 0.9 % Sodium Chloride Flush 3 ML SYRINGE IVFLUSH (07:15)
[2022-05-02 07:25] VITALS: BP 146/58; PULSE 70; RESP 12; TEMP 36.8; O2SAT 97
--- NOTE | 2022-05-02 08:53 | PHA.MEDREC ---
Pharmacy Consult ? Medication Reconciliation Pharmacy has completed the medication reconciliation.
--- NOTE | 2022-05-02 10:15 | MHC.CM.PN ---
PATIENT LIVES WITH HER HCP/SPOUSE COPY REQUESTED TO BE BROUGHT IN FOR MEDICAL RECORDS. COVID VAX X 4. NO DME AND NO SERVICES. SHE RECENTLY HAD COVID 19 VIRUS. IMM 07/02 IN E.D. MEDICAL RECORD BIN
[2022-05-02 12:18] VITALS: BP 131/65; PULSE 80; RESP 12; TEMP 36.8; O2SAT 98
--- NOTE | 2022-05-02 13:27 | PM.EVENT ---
Event Note Date of Service: 05/02/22 Event Note: Seen and evaluated this morning Pain is better controlled No reported further blood per rectum GI input appreciated, no intervention at this point, consider in few weeks Continue IV antibiotic, IV EF and advanced diet as tolerated
[2022-05-02] MEDS: Acetaminophen 325 MG TABLET 650 MG PO (15:16)
--- NOTE | 2022-05-02 17:54 | PM.GICN ---
History of Present Illness Data of Consult Service Date: 05/02/22 Requesting physician: Carmen iKm Primary Care Provider: Andrea Ruiz MD HPI Reason for consult: colitis 76-year-old female with past medical history of hypertension, CKD stage 3, being seen for colitis. She had been well and her normal self until last 1-2d. She noted constipation and difficulty passing stools. She had urgency and went to the bathroom and noted 10/10 sharp pain in LLQ without radiation and no relieving or exacerbating factors. She had some sweat but no fever, no nausea or vomiting. She also noted blood clots in the toilet. She denies any chest pain, no shortness of breath. No urinary symptoms and no lower extremity edema. Not on nsaids or blood thinners. No antibiotics in last 3 months Since admission no further episodes and feeling very hungry with desire to eat. Labs:WBC: 13.3, hemoglobin: 14.9 then decreased to 13.4, labs otherwise unremarkable, has a BUN of 17, UA is positive for leukocyte Estrace trace and some WBC.? GFR of 46 Imaging: Abdomen pelvic CT: prominent inflammation extending from the distal transverse colon to the distal descending colon consistent with colitis Last colonoscopy 2008 with [facility] and was normal.. Review of Systems Review of Systems: Constitutional : No Weight loss, ENT/Mouth : No sore throat, No Rhinorrhea Eyes: No Swelling, No Redness Cardiovascular : No Chest Pain, No SOB, No Edema Respiratory : No Cough, No Sputum, No Wheezing Gastrointestinal : see HPI Genitourinary : NO Dysuria, No Urinary Frequency, No Hematuria, No Urgency Musculoskeletal : No joint pain, No Myalgias, No Joint Swelling Skin : No Skin Lesions, No rash Neuro : No Weakness, No Numbness, No Dizziness, No Headache Psych : No Anxiety/Panic, No Depression Heme/Lymph: No Bruising, No Lymphadenopathy Endocrine : No Polyuria, No Polydipsia All other systems reviewed and are negative. [facility] Past Medical History Medical History Benign essential hypertension Chronic kidney disease Chronic kidney disease (CKD), stage III (moderate) History of seborrheic keratosis Otitis media of left ear Pure hypercholesterolemia Vitamin D deficiency Family History Family History Father No problems noted. Mother No problems noted. Brother In good health Son In good health Daughter In good health Surgical History Surgical History No pertinent past surgical history Social History Social History Housing: House Alcohol intake: current Alcohol intake frequency: holidays/special occasions only Alcohol type: wine Patient Tobacco Use Status: Never used Tobacco e-Cigarette/Vaping Use: Never Used Second Hand Smoke Exposure: Yes Advance Directives: No Advance Directives Information Provided: Yes service: No Current occupational status: retired Cognitive needs: No Hearing needs: No Vision needs: Yes Meds Allergies Allergy/AdvReac Type Severity Reaction Status Date / Time No Known Drug Allergies Allergy Unknown NONE Verified 05/01/22 23:08 [NO KNOWN DRUG ALLERGIES] Active Medications: Current Medications Acetaminophen (Acetaminophen 325 Mg Tablet) 650 mg PO Q6H PRN PRN Reason: Pain, Mild (Pain Scale 1-3) Last Admin: 05/02/22 15:16 Dose: 650 mg Docusate Sodium (Docusate Sodium 100 Mg Capsule) 100 mg PO DAILY PRN PRN Reason: Constipation Ceftriaxone Sodium 1 gm/ (Sodium Chloride) 50 mls @ 100 mls/hr IV Q24H [facility] Last Infusion: 05/02/22 06:20 Dose: Infused Metronidazole (Flagyl) 500 mg in 100 mls @ 100 mls/hr IV Q8H [facility] Last Infusion: 05/02/22 12:28 Dose: Infused Lactated Ringer's (Lr) 1,000 mls @ 100 mls/hr IVCONT .Q10H [facility] Last Admin: 05/02/22 17:02 Dose: 100 mls/hr Morphine Sulfate (Morphine Sulfate 2 Mg/Ml Cartridge) 2 mg IVPUSH Q5M PRN; Protocol PRN Reason: Chest Pain Last Admin: 05/02/22 02:54 Dose: 2 mg Ondansetron HCl (Ondansetron Hcl 4 Mg/2 Ml Vial) 4 mg IVPUSH Q8H PRN PRN Reason: Nausea and Vomiting Pharmacy Consult (Consult Rx Perform Med Rec) 1 each MISCELLANE ONCE PRN PRN Reason: Consult order Sodium Chloride (0.9 % Sodium Chloride Flush 3 Ml Syringe) 3 ml IVFLUSH QSHIFT [place] Last Admin: 05/02/22 17:02 Dose: Not Given Physical Exam Vital Signs: Vital Signs: Last Vital Signs Temp 98.2 F 05/02/22 12:18 Pulse 80 05/02/22 12:18 Resp 12 05/02/22 12:18 BP 131/65 05/02/22 12:18 Pulse Ox 98 05/02/22 12:18 O2 Del Method 05/02/22 07:25 BMI result Body Mass Index 21.2 EXAM: GENERAL: The patient is thin VITAL SIGNS:see workflow HEENT: Nonicteric sclerae, PERRLA, EOMI. Oropharynx clear. Moist mucous membranes. Conjunctivae appear well perfused. No thyroid mass. CHEST: Chest wall is nontender. HEART: Regular rate and rhythm without murmurs. LUNGS: Clear to auscultation bilaterally. ABDOMEN: Soft, positive bowel sounds, nontender, no organomegaly.no flank tenderness SKIN: No rash, no excessive bruising, petechiae, or purpura. NEUROLOGIC: Cranial nerves II-XII intact without motor/sensory deficit. Psych: normal Results Labs CBC & Chem 7: 05/02/22 05:25 05/02/22 05:25 Labs: Short CBC 05/01/22 05/02/22 05/02/22 Range/Units 23:12 03:40 05:25 WBC 13.3 H 11.9 H (4.8-10.8) X10*3/uL Hgb 14.9 13.4 13.5 (12.0-16.0) g/dl Hct 46.2 40.5 41.1 (37.0-47.0) % Plt Count 178 155 L (160-400) X10*3/uL BMP 05/01/22 05/02/22 23:12 05:25 Sodium 142 142 Potassium 4.1 4.0 Chloride 103 108 Carbon Dioxide 23 22 BUN 17 H 14 Creatinine 1.02 0.79 Calcium 9.7 8.7 D Liver Function 05/01/22 Range/Units 23:12 Total Bilirubin 0.9 (0.0-1.0) mg/dL AST 23 (5-31) U/L ALT 16 (0-31) U/L Alkaline Phosphatase 77 (39-117) U/L Albumin 4.6 (3.5-5.0) g/dL Urine 05/01/22 Range/Units 23:40 Urine Color Dark Yellow Urine Appearance Clear Urine pH 5.0 (5.0-9.0) Ur Specific [place] 1.020 (1.005-1.025) Urine Protein Trace (Neg-Trace) mg/dL Urine Glucose (UA) Negative (Negative) mg/dL Imaging CT scan - abdomen: Attestation: I personally reviewed and interpreted this imaging study as follows: (atherosclerosis aorta, thickened colon descending and transverse ) Assessment and Plan (1) Acute colitis: Status: Acute Plan 1/ Acute colitis, most likely ischemic given she has atherosclerosis, ddx; infectious or inflammatory, less likely c diff or neoplasia PLAN: 1/ Agree with antibiotics e.g IV cipro and flagyl 2/ stool PCR GI panel 3/ c diff PCR 4/ fluid resuscitation 5/ hold [id number] and BP meds for the moment, until sx improve, and BP MAP>65 at least 6/ o/p colonoscopy in 4 weeks or so Procedures Date of Service Date of Service: 05/02/22
[2022-05-02 19:57] VITALS: BMI 21.2
[2022-05-03] VITALS (7 sets, daily range): BP systolic 170–188; BP diastolic 79–88; PULSE 78–84; RESP 16–20; TEMP 36.1–37; O2SAT 95–96
[2022-05-03] MEDS: metroNIDAZOLE/NS 500 MG/100 ML PIGGYBACK 100 MG IV ×3 (01:55→18:04)
[2022-05-03] MEDS: Lactated Ringers 1,000 ML 100 ML IVCONT ×3 (01:55→16:27)
[2022-05-03] MEDS: cefTRIAXone sodium 1 GM in 0.9 % Sodium Chloride 50 ML IV (03:46)
[2022-05-03] MEDS: hydrALAZINE HCl 20 MG/ML VIAL 5 MG IVPUSH (05:26)
[2022-05-03 07:13] LABS: Anion Gap 12 (12-20); Blood Urea Nitrogen 6 mg/dL (9-16); Calcium 8.5 mg/dL (8.4-10.2); Carbon Dioxide 27 mmol/L (22-29); Chloride 108 mmol/L (96-108); Creatinine Clr Calc Pharmacy 56.4; Estimated Glomerular Filt Rate > 60; Glucose Random 93 mg/dL (60-115); Potassium 3.3 mmol/L (3.3-5.1); Sodium 144 mmol/L (135-145)
[2022-05-03 07:19] LABS: Hematocrit 37.1 % (37.0-47.0); Hemoglobin 12.5 g/dl (12.0-16.0); Mean Corpuscular HGB Conc 33.7 g/dl (31.0-35.0); Mean Corpuscular Hemoglobin 29.5 pg (27.0-33.0); Mean Corpuscular Volume 87.5 fL (80.0-98.0); Mean Platelet Volume 10.3 fL (9.4-12.3); Platelet Count 141 X10*3/uL (160-400); Red Blood Count 4.24 X10*6/uL (4.20-5.50); Red Cell Distribution Width 13.2 % (11.0-16.0); White Blood Count 10.5 X10*3/uL (4.8-10.8)
[2022-05-03] MEDS: lisinopriL 20 MG TABLET PO (08:54)
[2022-05-03] MEDS: amLODIPine Besylate 5 MG TABLET PO (08:54)
--- NOTE | 2022-05-03 08:58 | PC.NURSE ---
patient medicated per order
--- NOTE | 2022-05-03 11:52 | PC.NURSE ---
patient a&ox3, patient ambulates with assist to bathroom, at bedside, ivf running per order, call jacobo within reach, will continue to monitor
--- NOTE | 2022-05-03 14:22 | HO.PM.IMPN ---
Subjective Subjective Date of Service: 05/03/22 Interval History: the patient was seen and evaluated this morning Laying in bed, feels better already with decreased pain and diet tolerance no reported bleeding overnight No reported other overnight events. Systemic review: No fever, chills or weakness No chest pain, palpitation No shortness of breath or coughing No abdominal pain, nausea or vomiting No urinary symptoms No reported rash Physical Exam Vital Signs: Vital Signs: Last Vital Signs Temp 98.6 F 05/03/22 08:38 Pulse 83 05/03/22 08:38 Resp 20 05/03/22 08:38 BP 187/81 H 05/03/22 08:38 Pulse Ox 96 05/03/22 08:38 O2 Del Method 05/03/22 08:38 BMI result Body Mass Index 21.2 Const: Other: Constitutional : Awake, interactive, not in distress Neck : Normal inspection, Supple Cardiovascular : RRR, no JVP, no lower extremity edema Respiratory : good bilateral air entry, no crackles, wheezes or rhonchi Gastrointestinal: soft, lax, Normal bowel sounds, LL quadrant mild tenderness Skin : Warm, Dry Neurological : Alert & oriented x3, No focal deficit Objective Data Active Medications Acetaminophen (Acetaminophen 325 Mg Tablet) 650 mg PO Q6H PRN PRN Reason: Pain, Mild (Pain Scale 1-3) Last Admin: 05/02/22 15:16 Dose: 650 mg Documented By: IVONNE Amlodipine Besylate (Amlodipine Besylate 5 Mg Tablet) 5 mg PO DAILY [facility]; Protocol Last Admin: 05/03/22 08:54 Dose: 5 mg Documented By: ARAVIND Docusate Sodium (Docusate Sodium 100 Mg Capsule) 100 mg PO DAILY PRN PRN Reason: Constipation Ceftriaxone Sodium 1 gm/ (Sodium Chloride) 50 mls @ 100 mls/hr IV Q24H [facility] Last Infusion: 05/03/22 05:20 Dose: 0 mls/hr Documented By: RASHARD Metronidazole (Flagyl) 500 mg in 100 mls @ 100 mls/hr IV Q8H [facility] Last Infusion: 05/03/22 09:55 Dose: 0 mls/hr Documented By: ARAVIND Lactated Ringer's (Lr) 1,000 mls @ 100 mls/hr IVCONT .Q10H [facility] Stop: 05/03/22 22:00 Last Admin: 05/03/22 10:58 Dose: 100 mls/hr Documented By: ARAVIND Lisinopril (Lisinopril 20 Mg Tablet) 20 mg PO DAILY [facility]; Protocol Last Admin: 05/03/22 08:54 Dose: 20 mg Documented By: ARAVIND Morphine Sulfate (Morphine Sulfate 2 Mg/Ml Cartridge) 2 mg IVPUSH Q5M PRN; Protocol PRN Reason: Chest Pain Last Admin: 05/02/22 02:54 Dose: 2 mg Documented By: VERONICA Ondansetron HCl (Ondansetron Hcl 4 Mg/2 Ml Vial) 4 mg IVPUSH Q8H PRN PRN Reason: Nausea and Vomiting Pharmacy Consult (Consult Rx Perform Med Rec) 1 each MISCELLANE ONCE PRN PRN Reason: Consult order Sodium Chloride (0.9 % Sodium Chloride Flush 3 Ml Syringe) 3 ml IVFLUSH QSHIFT [facility] Last Admin: 05/03/22 08:54 Dose: Not Given Documented By: ARAVIND Non-Admin Reason: IV Running Labs CBC & Chem 7: 05/03/22 06:46 05/03/22 06:46 Labs: Laboratory Results - last 24 hr 05/03/22 05/03/22 06:46 06:46 MCV 87.5 MCH 29.5 MCHC 33.7 RDW 13.2 Plt Count 141 L MPV 10.3 Absolute Nucleated RBC 0.000 Nucleated RBC % (auto) 0.0 Anion Gap 12 Estim Creat Clear Calc 56.4 Estimated GFR > 60 Random Glucose 93 Calcium 8.5 Assessment and Plan (1) Acute colitis: Status: Acute (2) Acute lower gastrointestinal bleeding: Status: Acute Plan 76-year-old female with past medical history of hypertension presents to the hospital with complaints of blood per rectum as well as lower quadrant abdominal pain # acute lower gastrointestinal bleeding secondary to acute colitis CT evidence of extensive colitis, infectious vs ischemic no recurrence of bleeding, stable H&H continue IVF advance diet as tolerated GI input appreciated, colonoscopy in 4 weeks threshold to transfuse at hemoglobin less than 7 GI panel, C diff- although denies diarrhea # hypertension elevated, resume home medications # CKD stage 3 continue to follow BMP DVT prophylaxis: SCDs Given patient's acute GI bleed, acute colitis requiring IV antibiotics patient will require overnight inpatient hospital stay for further management pending safe discharge plan Quality Stroke Does the patient have a stroke diagnosis?: No VTE Prior VTE?: No VTE Risk Level:: Medical - moderate - high VTE Device Contraindication: N/A - Device Ordered VTE Drug Contraindication: Treatment Not Indicated
--- NOTE | 2022-05-03 16:16 | PC.NURSE ---
report called to floor, transport notified
--- NOTE | 2022-05-03 18:32 | PC.NURSE ---
BP elevated 172/79 pulse 83 ,patient asymptomatic,Dr. Fraire notified,will monitor
[2022-05-04] MEDS: metroNIDAZOLE/NS 500 MG/100 ML PIGGYBACK 100 MG IV (03:39)
[2022-05-04 04:00] VITALS: BP 183/84; PULSE 99; RESP 18; TEMP 36.4; O2SAT 96
[2022-05-04 04:30] VITALS: BP 160/80
[2022-05-04] MEDS: cefTRIAXone sodium 1 GM in 0.9 % Sodium Chloride 50 ML IV (04:55)
[2022-05-04 05:39] LABS: Hematocrit 37.9 % (37.0-47.0); Hemoglobin 12.4 g/dl (12.0-16.0); Mean Corpuscular HGB Conc 32.7 g/dl (31.0-35.0); Mean Corpuscular Hemoglobin 28.8 pg (27.0-33.0); Mean Corpuscular Volume 88.1 fL (80.0-98.0); Mean Platelet Volume 10.9 fL (9.4-12.3); PLT CLUMP 1; Red Cell Distribution Width 13.2 % (11.0-16.0)
[2022-05-04 05:47] LABS: White Blood Count 8.3 X10*3/uL (4.8-10.8)
[2022-05-04 05:56] LABS: Anion Gap 16 (12-20); Blood Urea Nitrogen 9 mg/dL (9-16); Calcium 8.5 mg/dL (8.4-10.2); Carbon Dioxide 23 mmol/L (22-29); Chloride 108 mmol/L (96-108); Creatinine Clr Calc Pharmacy 53.1; Estimated Glomerular Filt Rate > 60; Glucose Random 90 mg/dL (60-115); Potassium 3.9 mmol/L (3.3-5.1); Sodium 143 mmol/L (135-145)
[2022-05-04 06:46] VITALS: BP 159/72; PULSE 74; RESP 18; TEMP 36.1; O2SAT 92
[2022-05-04] MEDS: amLODIPine Besylate 5 MG TABLET PO (07:35)
[2022-05-04] MEDS: lisinopriL 20 MG TABLET PO (07:36)
[2022-05-04] MEDS: 0.9 % Sodium Chloride Flush 3 ML SYRINGE IVFLUSH (07:38)
--- NOTE | 2022-05-04 10:01 | PM.DS ---
DS: Providers Provider Date of Service: 05/04/22 Date of admission: 05/02/22 04:03 Primary care physician: Andrea Ruiz MD Consults: 05/02/22 04:02 Consult to Gastroenterology Routine Consulting Provider: Ed Diop Reason for consultation: GI bleed Has provider been notified: Yes DS: Diagnosis Discharge Diagnosis (1) Acute colitis: Status: Acute (2) Acute lower gastrointestinal bleeding: Status: Acute DS: Summary Hospital Course Hospital Course: Admission note HPI 76-year-old female with past medical history of hypertension, CKD stage 3, presents the hospital with complaints of blood per rectum as well as left quadrant abdominal pain.? Patient reports that she was doing very well up until 17:00 when she started having urgency to move her bowels, when she went to the bathroom she had multiple blood clots, she has had several more episodes since presenting to the hospital.? Immediately after she developed left quadrant abdominal pain that was about 8/10, nonradiating, constant, relieved with morphine.? She felt very dizzy after the episodes.? She denies any similar episodes in the past.? She denies any chest pain, no shortness of breath, she has had nausea and 1 episode of vomiting.? No urinary symptoms and no lower extremity edema.? Patient reports no diarrhea and he was just bleeding from the rectum. On arrival to the ED patient hemodynamically stable with no significant abnormal vitals Labs are significant for WBC count of 13.3, hemoglobin of 14.9 the decreased to 13.4 on repeat while waiting admission, labs otherwise unremarkable, has a BUN of 17, UA is positive for leukocyte Estrace trace and some WBC.? GFR of [address] shows prominent inflammation extending from the distal transverse colon to the distal descending colon consistent with colitis, there is diffuse mucosal enhancement throughout this region on postcontrast imaging which limits evaluation for possible superimposed active hemorrhage.? The quell segment of collapse ascending colon which may also reflect a segment of colitis Patient reports she had a colonoscopy about 10 years ago which was normal. Hospital course The patient was admitted for evaluation of abdominal pain with associated blood per rectum. CT scan showed evidence of extensive colitis with concern over possible ischemic nature. Patient was started on IV fluid and IV antibiotic and kept NPO as the pain and bleeding improved significantly. Hemoglobin level remained stable. Evaluated by Gastroenterology Dr. Pretty who recommended to continue antibiotics and advanced diet as tolerated with a plan to follow-up as outpatient in 4 weeks for colonoscopy. Diet was advanced and the patient was able to tolerated it. No reported bleeding or drop in hemoglobin noticed. Will be discharged on oral antibiotics. Continue Flagyl and Ceftin as prescribed advance your diet slowly as tolerated keep yourself well hydrated To follow up with dr Pretty from GI for outpatient colonoscopy in 4 weeks. please call clinic for appointment. Time Spent with Patient Time attestation: Total time spent providing and/or coordinating discharge services: Discharge coordination time: Greater than 30 minutes Quality: Safe Use of Opioids Does Pt have an Active Cancer Diagnosis on the Problem List?: No Quality: Stroke Does the patient have a stroke diagnosis?: No Physical Exam Vital Signs: Vital Signs: Last Vital Signs Temp 97 F 05/04/22 06:46 Pulse 74 05/04/22 06:46 Resp 18 05/04/22 06:46 BP 159/72 H 05/04/22 06:46 Pulse Ox 92 05/04/22 06:46 O2 Del Method 05/04/22 06:46 BMI result Body Mass Index 21.2 Const: Other: Constitutional : Awake, interactive, not in distress Neck : Normal inspection, Supple Cardiovascular : RRR, no JVP, no lower extremity edema Respiratory : good bilateral air entry, no crackles, wheezes or rhonchi Gastrointestinal: soft, lax, Normal bowel sounds,significantly improved LL quadrant tenderness with no surgical signs Skin : Warm, Dry Neurological : Alert & oriented x3, No focal deficit DS: Data Data Completed and Pending Labs on day of discharge: Laboratory Results - last 24 hr 05/04/22 05/04/22 05:22 05:22 WBC 8.3 RBC 4.30 Hgb 12.4 Hct 37.9 MCV 88.1 MCH 28.8 MCHC 32.7 RDW 13.2 Plt Count TNP MPV 10.9 Absolute Nucleated RBC 0.000 Nucleated RBC % (auto) 0.0 Sodium 143 Potassium 3.9 Chloride 108 Carbon Dioxide 23 Anion Gap 16 BUN 9 Creatinine 0.69 Estim Creat Clear Calc 53.1 Estimated GFR > 60 Random Glucose [address] scan - abdomen: Radiologist's impression: ITS Impressions Abdomen/Pelvis CT 05/02/22 01:45 IMPRESSION: 1. Prominent inflammation extending from the distal transverse colon to the distal descending colon, consistent with colitis. There is diffuse mucosal enhancement throughout this region on postcontrast imaging, which limits evaluation for possible superimposed active hemorrhage. 2. Thick-walled segment of collapsed ascending colon, which may also reflect a segment of colitis. However, correlation with recent or follow-up colonoscopy is advised to exclude an underlying mass lesion. Discharge Plan Discharge Anticipated Discharge Date/Time: 05/04/22 09:46 Patient Disposition: Home, Self-Care Discharge Diagnosis: Acute colitis Referrals: Andrea Ruiz MD [Primary Care Provider] - 1 Week Discharge Medications: New cefuroxime axetil 500 mg tablet 500 mg PO BID Qty: 10 0RF metronidazole 500 mg tablet 500 mg PO TID Qty: 15 0RF Continued lisinopril 30 mg tablet 30 mg PO DAILY Qty: 90 0RF amlodipine 5 mg tablet 5 mg PO DAILY 90 Days Qty: 90 1RF cholecalciferol (vitamin D3) 25 mcg (1,000 unit) tablet 25 mcg PO DAILY 90 Days Qty: 90 3RF Discharge Orders: Discharge Order (Routine); Ordered 05/04/22 Ordered By: Dedrick Espinoza Diet: Advance to usual diet Activity on Discharge: As tolerated Stand Alone Forms: Patient Portal Discharge page Care Plan Goals: Read below Health Concerns: Read below Plan of Treatment: Read below Assessment: You were admitted to the hospital for evaluation of abdominal pain and bleeding. images were consistent with inflammation of your colon. treated as infection with IV fluids and antibiotics with good response over the course of hospital stay as your blood level remained stable. seen by construction technician who recommended a follow up in the office for colonoscopy in 4 weeks or so. Continue Flagyl and Ceftin as prescribed advance your diet slowly as tolerated keep yourself well hydrated To follow up with dr Pretty from GI for outpatient colonoscopy in 4 weeks. please call clinic for appointment.
--- NOTE | 2022-05-04 10:32 | MHC.CM.PN ---
PT TO DC HOME TODAY WITH NO SERVICES FAMILY TO TRANSPORT
[2022-05-04 11:11] VITALS: BP 152/83; PULSE 92; RESP 18; TEMP 36.1; O2SAT 95
== END 2022-05-04 11:54 | disposition home or self-care (01) | DRG 392 ==
LOC: HO.ED 05-02 01:16 → HO.EDOVER 05-02 04:13 → HO.S3 05-03 15:47
PROVIDERS: Admitting Provider Internal Medicine; Emergency Provider Emergency Medicine; PCP Internal Medicine; Visit Provider Student in an Organized Health Care Education/Training Program
DX: K52.9 Noninfective gastroenteritis and colitis, unspecified (principal); K62.5 Hemorrhage of anus and rectum; I12.9 Hypertensive chronic kidney disease with stage 1 through stage 4 chronic kidney disease, or unspecified chronic kidney disease; N18.30 Chronic kidney disease, stage 3 unspecified; Z20.822 Contact with and (suspected) exposure to COVID-19; Z79.899 Other long term (current) drug therapy
CPT/HCPCS: 36415; 74178; 80048; 80053; 81001; 83605; 85014; 85018; 85025; 85027; 85610; 85730; 86850; 86900; 86901; 87635; 99285; J0696; J2270; J2543; Q9967

== ENCOUNTER 2022-06-05 06:09 | Day surgery (SDC) | payer MEDICARE, SELFPAY ==
[2022-05-30 10:33] VITALS: BMI 21.0
--- NOTE | 2022-06-04 11:53 | HO.ANESPROP2 ---
Documented by User: Carissa Pressley NP 06/04/22 11:57 HPI - Anesthesia Eval Consult details Narrative: 76yo F for Colonoscopy PMFSH Active Problems Active Problems: All Active Problems (Updated 05/30/22 @ 10:12 by Hillary Benavides RN) Chronic kidney disease (Acute) Screening for hypothyroidism (Acute) Low vitamin D level (Acute) Colitis (Acute) Vitamin D deficiency (Acute) Chronic kidney disease (CKD), stage III (moderate) (Acute) Pure hypercholesterolemia (Acute) Benign essential hypertension (Acute) Past Medical History Medical History Benign essential hypertension Chronic kidney disease (CKD), stage III (moderate) Colitis History of seborrheic keratosis Otitis media of left ear Pure hypercholesterolemia Vitamin D deficiency Family History Family History Father No problems noted. Mother No problems noted. Brother In good health Son In good health Daughter In good health Surgical History Surgical History H/O colonoscopy Hx of cataract extraction Social History Social History Household Members: Spouse Housing: House Are you a primary intensive care unit registered nurse to a significant other at home: No Do you presently have visiting nurse or other home services: No Alcohol intake: current Alcohol intake frequency: does not drink Alcohol type: wine Patient Tobacco Use Status: Never used Tobacco e-Cigarette/Vaping Use: Never Used Second Hand Smoke Exposure: Yes Use of substances other than those prescribed or required for medical reasons: No Have you been hit, kicked, punched, or otherwise hurt by someone within the past year? If so, by whom?: No Are you DNR?: No Advance Directives: No Advance Directives Information Provided: Yes (brochure mailed) Advance Directives on File: No Recently lost weight without trying: No Eating poorly because of decreased appetite: No Nutrition Risks: Surgical patient >75years Poor oral hygiene: No service: No Current occupational status: retired Cognitive needs: No Hearing needs: No Vision needs: Yes Meds Allergies Allergy/AdvReac Type Severity Reaction Status Date / Time No Known Allergies Allergy Verified 05/30/22 10:17 Exam Exam Date and Time: June 04, 2022 1153 Height,Weight and Vital Signs: Height 5 ft 2 in Weight 52.163 kg Pertinent Lab Results Pertinent Lab Results: Laboratory Tests 05/04/22 05/04/22 05:22 05:22 WBC 8.3 Hgb 12.4 Hct 37.9 Plt Count TNP Sodium 143 Potassium 3.9 Chloride 108 Carbon Dioxide 23 BUN 9 Creatinine 0.69 Assessment and Plan Assessment Anesthesia Assessment: Chart Reviewed Documented by User: Yolanda Geronimo MD 06/05/22 07:47 [facility] Past Medical History Medical History Benign essential hypertension Chronic kidney disease (CKD), stage III (moderate) Colitis History of seborrheic keratosis Otitis media of left ear Pure hypercholesterolemia Vitamin D deficiency Functional capacity: independent ambulation Patient : No Family History Family History Father No problems noted. Mother No problems noted. Brother In good health Son In good health Daughter In good health Family history of problems with anesthesia: Unobtainable Surgical History Surgical History H/O colonoscopy Hx of cataract extraction History of Problems with Anesthesia: No Social History Social History Household Members: Spouse Housing: House Are you a primary intensive care unit registered nurse to a significant other at home: No Do you presently have visiting nurse or other home services: No Alcohol intake: current Alcohol intake frequency: does not drink Alcohol type: wine Patient Tobacco Use Status: Never used Tobacco e-Cigarette/Vaping Use: Never Used Second Hand Smoke Exposure: Yes Use of substances other than those prescribed or required for medical reasons: No Have you been hit, kicked, punched, or otherwise hurt by someone within the past year? If so, by whom?: No Are you DNR?: No Advance Directives: No Advance Directives Information Provided: Yes (brochure mailed) Advance Directives on File: No Recently lost weight without trying: No Eating poorly because of decreased appetite: No Nutrition Risks: Surgical patient >75years Poor oral hygiene: No service: No Current occupational status: retired Cognitive needs: No Hearing needs: No Vision needs: Yes Meds Allergies Allergy/AdvReac Type Severity Reaction Status Date / Time No Known Allergies Allergy Verified 05/30/22 10:17 Exam Airway Mallampati Class: II TM Dist: >3cm Neck ROM: Full Heart: RRR Lungs: CTA Assessment and Plan Final Anesthetic Review Family History of Problems with Anesthesia: Unobtainable History of Problems with Anesthesia: No ASA Class: III Final Preanesthetic Review: No Changes in Pt Med Stat, Meds/Allgs Chart Reviewed, Consent Obtained/Reviewed and Anes Risks/Benef Reviewed Patient Risk: Low Procedure Risk: Low Anesthetic Plan Anesthetic Plan: MAC: Disposition: Standard PACU
[2022-06-05 06:20] VITALS: BP 163/72; PULSE 92; RESP 16; TEMP 36.3; O2SAT 97; BMI 21.0
--- NOTE | 2022-06-05 07:15 | MHC.SHP ---
Pre-Procedural Eval Section A Date of Service: 06/05/22 Section B Chief Complaint: Noninfective gastroenteritis and colitis, Details of Present Illness: 76 y.o F with recent admission to the hospital for abd pain and hematochezia found to have L sided colitis on imaging. Here for follow up colonoscopy. Currently no symptoms, her sx had resolved within a couple of days at that time. Relevant Family History (Specify if Yes): No Present Medications: see Short Stay Collaborative assessment Medical History: Significant History (HTN, CKD) History of Previous Operations: No relevant previous surgery Allergies: Allergies Allergy/AdvReac Type Severity Reaction Status Date / Time No Known Allergies Allergy Verified 05/30/22 10:17 Review of Systems Review of Systems Comment: 10 point ROS negative except as above Exam Exam Comment: Gen appear: No acute distress, well nourished HEENT: no icterus Chest: No overt resp distress Abd: soft, nontender, nondistended Psych: Stable affect, answering questions appropriately Neuro: A/Ox3 noted to move all extremities spontaneously Ext: no peripheral edema Plan Diagnosis/Plan: Unchanged I have reviewed the history and physical and performed a pertinent physical examination on my patient. No changes have occurred unless specified.
--- NOTE | 2022-06-05 07:21 | P.OP_ITS ---
Operative Note Operative Note Date of Service: 06/05/22 Narrative: Procedure: Colonoscopy Indication: Abnormal imaging, colitis Endoscopist: Elena Mckinney MD Anesthesia Provider: Dr Yolanda Coffman Anesthesia type: MAC Instrument: Olympus [id number]-H190L Consent: Indication, risks vs benefits, and alternatives were discussed with the patient who gave written informed consent to proceed. EKG, pulse, pulse oximetry and blood pressure were monitored throughout the procedure. Please see anesthesia flowsheet. Procedure: The patient was brought to the procedure room and placed in the left lateral decubitus position. IV medications were administered by the anesthesia provider in attendance. A digital rectal exam was performed which was abnormal due to finding of hemorrhoids. The colonoscope was then inserted through the anus and advanced through the colon to the cecum at 70 cm. Mucosa was carefully examined under high definition white light as the instrument was slowly withdrawn in a retrograde panoramic fashion. Retroflexion was performed in rectum. The procedure was not difficult. There were no immediate obvious complications. The quality of the prep was BBPS: 3+2+3 = adequate Withdrawal time 9 minutes. Limitations: No limitations. Findings: Mucosa: Normal to cecum. Protruding lesions: * Small external and medium internal hemorrhoids without stigmata of recent bleeding. Excavated lesions: * Scattered small and large mouthed divericula in sigmoid colon. Impression: 1. Normal colon mucosa 2. Moderate sigmoid diverticulosis 3. External and internal hemorrhoids Recommendations: - Acute colitis episode likely secondary to ischemia vs infection. Normal colon mucosa noted today. - Future colonoscopy for asymptomatic colorectal cancer screening not recommended due to age. - Increase fiber intake, sitz bath.
[2022-06-05 08:02] VITALS: BP 115/56; PULSE 73; RESP 16; TEMP 36.7; O2SAT 99
[2022-06-05 08:17] VITALS: BP 128/68; PULSE 71; RESP 12; O2SAT 98
[2022-06-05 08:31] VITALS: BP 141/64; PULSE 72; RESP 18; TEMP 36.1; O2SAT 99
--- NOTE | 2022-06-05 10:24 | HO.POSTANES ---
Post Anesthesia Evaluation Post Anesthesia Evaluation Vital Signs: Vital Signs Temp Pulse Resp BP Pulse Ox O2 Del Method 06/05/22 08:31 97.0 F 72 18 141/64 H 99 Room Air 06/05/22 08:17 71 12 128/68 98 Room Air 06/05/22 08:02 98.0 F 73 16 115/56 L 99 Room Air 06/05/22 06:20 97.3 F 92 16 163/72 H 97 Room Air Anesthesia: Monitored Mental Status: Awake Pain Control: Satisfactory Nausea/Vomiting: None Hydration: Adequate Anesthesia-Related Issues: No Anes. Related Issues
== END 2022-06-05 09:21 | disposition home or self-care (01) ==
PROVIDERS: PCP Internal Medicine; Visit Provider Internal Medicine
PROC: 0DJD8ZZ Inspection of Lower Intestinal Tract, Via Natural or Artificial Opening Endoscopic (ICD-10-PCS; CPT 45378; principal; 2022-06-05 07:30)
DX: K52.9 Noninfective gastroenteritis and colitis, unspecified (principal); K64.8 Other hemorrhoids; K64.4 Residual hemorrhoidal skin tags; K57.30 Diverticulosis of large intestine without perforation or abscess without bleeding; I12.9 Hypertensive chronic kidney disease with stage 1 through stage 4 chronic kidney disease, or unspecified chronic kidney disease; N18.30 Chronic kidney disease, stage 3 unspecified; E78.00 Pure hypercholesterolemia, unspecified; E55.9 Vitamin D deficiency, unspecified; Z79.899 Other long term (current) drug therapy
CPT/HCPCS: 45378

== ENCOUNTER → 2022-07-04 14:44 | Outpatient (BNVA) | payer MEDICARE, SELFPAY | PROVIDERS: PCP Internal Medicine; Visit Provider Internal Medicine | DX: K52.9 Noninfective gastroenteritis and colitis, unspecified (principal) | CPT/HCPCS: 99212 ==

== ENCOUNTER 2022-11-07 12:03 | Outpatient (REF) | payer MEDICARE, SELFPAY ==
--- NOTE | ~2022-11-07 | MM_ITS ---
EXAMINATION: MM SCREENING DIGITAL BREAST TOMOSYNTHESIS, BILATERAL CLINICAL INFORMATION: Screening. Asymptomatic. The lifetime risk of breast cancer based on the Tyrer-Cuzick Model is 2%. COMPARISON: Mammography: 10/23/2021, 06/24/2019, 06/18/2018 TECHNIQUE: Digital breast tomosynthesis is performed in both the craniocaudal and mediolateral oblique views along with computer-aided detection (CAD). Synthesized 2D images are generated from the tomosynthesis. FINDINGS: There are scattered areas of fibroglandular density (ACR BI-RADS breast composition Category b). Right breast is unremarkable. Parenchymal pattern is similar to prior studies and there is no developing density or interval mass or architectural abnormality. Neither breast shows abnormal calcifications. The bilateral axilla and skin contours are unremarkable. Left CC view has probable artifactual asymmetric density anterior 1:00 position, likely summation artifact or incompletely compressed glandular tissue. MM/MM tomosynthesis screening BI IMPRESSION: Left: -Asymmetric density anterior 1:00, suspect summation artifact or incompletely compressed glandular tissue. Right: -No mammographic evidence of malignancy. ASSESSMENT: BI-RADS 0: Incomplete - Need Additional Imaging Evaluation RECOMMENDATION: 1. Additional view left breast (spot CC nipple in profile). 2. Targeted ultrasound if warranted after review of the additional views. 3. Radiology department staff will contact the patient for additional imaging. This patient's information was entered into a reminder system with a target due date for their next mammogram.
== END 2022-11-07 12:04 | disposition home or self-care (01) ==
LOC: HO.MAMMO 12:03
PROVIDERS: Visit Provider Internal Medicine
DX: Z12.31 Encounter for screening mammogram for malignant neoplasm of breast (principal)
CPT/HCPCS: 77063; 77067

== ENCOUNTER 2022-11-18 08:50 | Outpatient (REF) | payer MEDICARE, SELFPAY ==
--- NOTE | ~2022-11-18 | MM_ITS ---
EXAMINATION: MM DIAGNOSTIC DIGITAL BREAST TOMOSYNTHESIS, LEFT CLINICAL INFORMATION: Recall from screening for asymmetric density anterior left breast on CC view suspected summation artifact or incompletely compressed glandular tissue. COMPARISON: Mammography: 11/07/2022, 10/23/2021, 10/23/2018 TECHNIQUE: Digital breast tomosynthesis is performed. 2D images are generated from the tomosynthesis. The following views are obtained: Left spot CC, nipple in profile. FINDINGS: There are scattered areas of fibroglandular density (ACR BI-RADS breast composition Category b). The additional view shows normal fibroglandular tissue similar to prior studies. There is no developing density or interval mass or architectural abnormality. Results are discussed with the patient at time of visit. MM/MM tomosynthesis added views L IMPRESSION: -No mammographic evidence of malignancy. -No significant changes from prior studies. ASSESSMENT: BI-RADS 1: Negative RECOMMENDATION: Routine annual mammography screening. This patient's information was entered into a reminder system with a target due date for their next mammogram.
== END 2022-11-18 08:51 | disposition home or self-care (01) ==
LOC: HO.MAMMO 08:50
PROVIDERS: PCP Internal Medicine; Visit Provider Internal Medicine
DX: R92.2 Inconclusive mammogram (principal)
CPT/HCPCS: 77061; 77065

== ENCOUNTER 2023-02-24 09:59 | Outpatient (REF) | payer MEDICARE, SELFPAY ==
[2023-02-24 10:13] LABS: MANUAL DIFF FLAG NO
[2023-02-24 10:33] LABS: Basophils Percent Auto 0.4 % (0-2); Eosinophils Absolute Auto 0.3 X10*3/uL (0.0-0.4); Hematocrit 44.8 % (37.0-47.0); Hemoglobin 14.5 g/dl (12.0-16.0); Imm Gran Abs Auto 0.02 X10*3/uL (0.00-0.03); Imm Gran Pct Auto 0.3 % (0.0-0.4); Lymphocytes Absolute Auto 3.1 X10*3/uL (1.2-4.9); Mean Corpuscular HGB Conc 32.4 g/dl (31.0-35.0); Mean Corpuscular Hemoglobin 29.1 pg (27.0-33.0); Mean Platelet Volume 10.2 fL (9.4-12.3); Monocytes Absolute Auto 0.5 X10*3/uL (0.1-1.2); Monocytes Percent Auto 6.7 % (2-11); Neutrophils Absolute Auto 3.5 x10*3/uL (2.0-8.3); Neutrophils Percent Auto 46.6 % (45-73); Platelet Count 180 X10*3/uL (160-400); Red Blood Count 4.98 X10*6/uL (4.20-5.50); Red Cell Distribution Width 12.8 % (11.0-16.0); White Blood Count 7.5 X10*3/uL (4.8-10.8)
[2023-02-24 11:03] LABS: Appearance Urine Clear; Color Urine Yellow; Glucose Urine UA Negative (Negative); Leukocyte Esterase Urine Small (1+) (Negative); Nitrite Urine Negative (Negative); UMIC TRIGGER UACC YES; Urine Blood Negative (Negative); Urine Ketones Negative (Negative); Urine Protein Negative (Neg-Trace)
[2023-02-24 11:14] LABS: Alanine Aminotransferase 12 U/L (0-31); Alkaline Phosphatase 64 U/L (39-117); Anion Gap 12 (12-20); Aspartate Amino Transferase 20 U/L (5-31); Bilirubin Total 0.8 mg/dL (0.0-1.0); Blood Urea Nitrogen 13 mg/dL (9-16); Calcium 10.1 mg/dL (8.4-10.2); Carbon Dioxide 29 mmol/L (22-29); Chloride 107 mmol/L (96-108); Cholesterol 193 mg/dL (<200); Estimated Glomerular Filt Rate > 60; Glucose Fasting 94 mg/dL (60-99); HDL Cholesterol 55 mg/dL (>40); LDL Cholesterol Calculated 119 mg/dL (<100); Potassium 3.8 mmol/L (3.3-5.1); Sodium 144 mmol/L (135-145); Total Protein 6.4 g/dL (6.5-8.0); Triglycerides 95 mg/dL (<150)
[2023-02-24 11:15] LABS: Bacteria Urine None Seen (None Seen); Hyaline Casts Urine 0-2 /LPF (0-2); RBC Urine 0-2 /HPF (0-2); UACC Culture Trigger YES; WBC Urine 0-5 /HPF (0-5)
[2023-02-24 11:29] LABS: TSH reflex Free T4 1.72 uIU/mL (0.32-4.0); Vitamin D 25-OH Total 42.2 ng/mL (>30)
== END 2023-02-24 10:00 | disposition home or self-care (01) ==
LOC: HO.LAB 09:59
PROVIDERS: PCP Internal Medicine; Visit Provider Internal Medicine
DX: I10 Essential (primary) hypertension (principal); E55.9 Vitamin D deficiency, unspecified; E78.00 Pure hypercholesterolemia, unspecified; R30.0 Dysuria
CPT/HCPCS: 36415; 80053; 80061; 81001; 81003; 82306; 84443; 85025; 87086

== ENCOUNTER 2023-03-04 09:59 | Outpatient (AMB) | payer MEDICARE, SELFPAY ==
[2023-03-04 10:00] VITALS: BP 142/90; PULSE 91; O2SAT 95; BMI 20.2
--- NOTE | 2023-03-04 10:00 | A.OFFPC_ITS ---
Vital Signs 03/04/23 10:00 03/04/23 10:47 Height 5 ft 2 in Weight 110 lb 4 oz BMI 20.2 BP 142/90 H 138/82 Blood Pressure Location Lt brachial Lt brachial Position Sitting Sitting Pulse 91 Pulse Source Pulse Oximeter Pulse Oximetry (%) 95 Oxygen Delivery Method Room Air Intake Visit Reasons: 6m F/U HTN Housekeeping/Laundry Required: No Accompanied by: Self / Same As Patient Allergies No Known Allergies Allergy (Verified 03/04/23 10:41) Medication List - Last Reconciled 03/04/23 by Andrea Ruiz MD amlodipine 5 mg PO DAILY 90 days cholecalciferol (vitamin D3) 25 mcg PO DAILY 90 days lisinopril 30 mg PO DAILY 90 days Tobacco use date assessed: 03/04/23 Fall risk assessment: No Falls in past year Last assessed Fall Risk: 03/04/23 Dental Screening Dental Screen Date: 03/04/23 Did you have a dental visit in the last 12 months?: No Did you have a dental problem in the last 6 months where you did not have access to dental care?: No Was dental information given to patient?: Patient has dentist HPI 6m F/U HTN HPI Details Patient comes in today for her follow up visit States that she feels okay She denies any headaches or dizziness Denies any chest pains, no SOB No nausea/vomiting, no abdominal pain No change in bowel habits noted Had her follow up labs done last week - to discuss her results [facility] Medical History Benign essential hypertension Chronic kidney disease (CKD), stage III (moderate) Colitis History of seborrheic keratosis Otitis media of left ear Pure hypercholesterolemia Vitamin D deficiency Surgical History H/O colonoscopy Hx of cataract extraction Family History Father No problems noted. Mother No problems noted. Brother In good health Son In good health Daughter In good health Social History Household Members: Spouse Housing: House Are you a primary tire care manager to a significant other at home: No Do you presently have visiting nurse or other home services: No Alcohol intake: current Alcohol intake frequency: does not drink Alcohol type: wine Patient Tobacco Use Status: Never used Tobacco e-Cigarette/Vaping Use: Never Used Second Hand Smoke Exposure: Yes service: No Current occupational status: retired Cognitive needs: No Hearing needs: No Vision needs: Yes Questionnaire PHQ-9 Over the last 2 weeks, how often have you been bothered by any of the following problems? 1. Little interest or pleasure in doing things: not at all 2. Feeling down, depressed, or hopeless: not at all 3. Trouble falling or staying asleep, or sleeping too much: not at all 4. Feeling tired or having little energy: not at all 5. Poor appetite or overeating: not at all 6. Feeling bad about yourself - or that you are a failure or have let yourself or your family down: not at all 7. Trouble concentrating on things, such as reading the newspaper or watching television: not at all 8. Moving or speaking so slowly that other people could have noticed. Or the opposite - being so fidgety or restless that you have been moving around a lot more than usual: not at all 9. Thoughts that you would be better off or of hurting yourself in some way: not at all Total score: 0 Depression Screening Interpretation: Negative 34510 - PHQ-9 Billing: Yes Source: Developed by Drs. Manfred Sharma, Amina Meza, Parker Zuniga and colleagues, with an educational suresh from [employer]. Thrive Questionnaire Date Thrive assessed: 03/04/23 I am a: Patient What is your living situation today?: I have a steady place to live Within the past 12 months, did the food you bought not last and you didn't have the money to get more?: Never true Within the past 12 months, did you worry whether your food would run out before you got money to buy more?: Never true Do you have trouble paying for medicines?: No Do you have trouble getting transportation to medical appointments?: No Do you have trouble paying your heating and electricity bill?: No Do you have trouble taking care of your child, family member or friend?: No Do you have trouble with day-to-day activities such as bathing, preparing meals, shopping, managing finances, etc.?: No Are you currently unemployed and looking for a job?: No Are you interested in more education?: No Please select the resources that you would like help with: None Currently or been in a relationship where the following occur: no concerns reported AUDIT C Alcohol Use Questionnaire (AUDIT-C) 1. How often do you have a drink containing alcohol?: Never 3. How often do you have six or more drinks on one occasion?: Never Total Score: 0 Score Reviewed/Action Taken: Yes OLIMPIA-7 AMB Questionnaire OLIMPIA-7 Date OLIMPIA - 7 assessed: 03/04/23 Feeling nervous, anxious, or on edge: 1 = Several days Not being able to stop or control worryin = Several days Worrying too much about different things: 1 = Several days Trouble relaxin = Several days Being so restless that it is hard to sit still: 1 = Several days Becoming easily annoyed or irritable: 1 = Several days Feeling afraid as if something awful might happen: 1 = Several days Total OLIMPIA-7 score (0-4 normal; 5-9 mild; 10-14 moderate; 15-21 severe): 7 Source: Developed by Drs. Manfred Sharma, Amina Meza, Parker Zuniga and colleagues, with an educational suresh from [employer]. Review of Systems Const Denies fatigue, Denies fever(s) and Denies headache(s) ENT Denies dysphagia, Denies dizziness, Denies headache(s), Denies odynophagia and Denies sore throat Card Denies chest pain, Denies palpitations and Denies dyspnea Resp Denies cough and Denies dyspnea GI Denies abdominal pain, Denies constipation, Denies dysphagia, Denies heartburn, Denies diarrhea, Denies nausea, Denies odynophagia and Denies vomiting Denies difficulty voiding, Denies nocturia and Denies dysuria Musc Denies back pain and Denies arthralgias Skin/Breast Denies rash Neuro Denies dizziness and Denies headache(s) Endo Denies fatigue and Denies palpitations Physical exam (Primary Care) Vital Signs: Last Vital Signs Pulse 91 03/04/23 10:00 BP 142/90 H 03/04/23 10:00 Pulse Ox 95 03/04/23 10:00 Oxygen Delivery Method Room Air 03/04/23 10:00 BMI result Body Mass Index 20.2 Tobacco/Smoking Status: Tobacco use Status Tobacco use date assessed 03/04/23 03/04/23 10:02 Patient Tobacco Use Status Never used Tobacco 03/04/23 10:02 e-Cigarette/Vaping Use Never Used 03/04/23 10:02 PHQ-9: PHQ-9 Score PHQ-9: Total score 0 03/04/23 10:02 Depression Screening Interpretation: Negative Thrive Assessment: Date of Thrive Assessment Date Thrive assessed 03/04/23 03/04/23 10:02 Currently or been in a relationship where the following occur: no concerns reported Const General: no acute distress and alert HENMT Ears: TM's normal bilaterally and EAC's normal Throat: Yes posterior oropharynx normal and Yes tonsils normal (no TP congestion) Neck Neck: Yes no lymphadenopathy and Yes supple Resp Auscultation: clear to auscultation bilaterally, no rales and no wheezes Cardio Rate: regular rate Rhythm: regular rhythm Heart sounds: no murmurs GI Palpation (GI): Soft to palpation and nontender Auscultation: normal bowel sounds Skin Rashes: no rashes Extrem General: Yes no clubbing, cyanosis or edema Results Reviewed Results Reviewed: Laboratory Tests 02/24/23 02/24/23 02/24/23 10:10 10:12 10:12 WBC 7.5 Hgb 14.5 Hct 44.8 Plt Count 180 D Sodium 144 Potassium 3.8 Creatinine 0.83 Estimated GFR > 60 Fasting Glucose 94 Calcium 10.1 D AST 20 ALT 12 Triglycerides 95 LDL Cholesterol, Calc 119 H HDL Cholesterol 55 25-OH Vitamin D Total 42.2 TSH 1.72 Ur Specific [place] 1.010 Urine Protein Negative Urine Glucose (UA) Negative Urine Blood Negative Laboratory Tests 02/24/23 10:12 Cholesterol 193 Assessment and Plan Assessment & Plan (1) Pure hypercholesterolemia: Code(s): E78.00 - Pure hypercholesterolemia, unspecified Plan: Results of her labs done last week reviewed and discussed with patient - her lipids have remained within normal range and are mostly unchanged from previous Reinforced low cholesterol diet Will recheck her labs again in 1 year - will be ordered at her next follow up appt (2) Benign essential hypertension: Code(s): I10 - Essential (primary) hypertension Plan: Reinforced low sodium diet - goal is systolic BP of at least 130 to 140 mm or less Continue Lisinopril 30 mg QD and Amlodipine 5 mg QD (3) Chronic kidney disease: Code(s): N18.9 - Chronic kidney disease, unspecified Qualifiers: Chronic kidney disease stage: unspecified stage Qualified Code(s): N18.9 - Chronic kidney disease, unspecified Plan: Patient's renal function appears stable on her recent labs and she currently remains in early stage 2 CKD Will continue to monitor her renal function regularly (4) Vitamin D deficiency: Code(s): E55.9 - Vitamin D deficiency, unspecified Plan: Continue Vitamin D3 1000 units QD (5) Colitis: Code(s): K52.9 - Noninfective gastroenteritis and colitis, unspecified Plan: Resolved previously with no recurrence of symptoms since Colonoscopy done in May [address] Mckinney revealed normal colonic mucosa Patient is again reminded to maintain adequate hydration and a high fiber diet to help regulate her bowel movements better and this should help lower her risks of recurrence of her GI issues Plan Follow up in 6 months Coding Level of Care Code Est Pt Level 4 (23381) Diagnoses Pure hypercholesterolemia E78.00 Benign essential hypertension I10 Chronic kidney disease N18.9 Chronic kidney disease stage: unspecified stage Vitamin D deficiency E55.9 Colitis K52.9
[2023-03-04 10:47] VITALS: BP 138/82
== END 2023-03-04 10:55 | disposition home or self-care (01) ==
PROVIDERS: PCP Internal Medicine; Visit Provider Internal Medicine
DX: E78.00 Pure hypercholesterolemia, unspecified (principal); I12.9 Hypertensive chronic kidney disease with stage 1 through stage 4 chronic kidney disease, or unspecified chronic kidney disease; N18.9 Chronic kidney disease, unspecified; E55.9 Vitamin D deficiency, unspecified; K52.9 Noninfective gastroenteritis and colitis, unspecified
CPT/HCPCS: 99214

== ENCOUNTER 2023-09-01 10:27 | Outpatient (AMB) | payer MEDICARE, SELFPAY ==
[2023-09-01 10:44] VITALS: BP 180/100; PULSE 91; O2SAT 95; BMI 20.6
--- NOTE | 2023-09-01 10:44 | MHC.PC.OV ---
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 Accompanied by: Self / Same As Patient Allergies No Known Allergies Allergy (Verified 09/01/23 11:11) Medication List - Last Reconciled 09/01/23 by Andrea Ruzi MD amlodipine 5 mg PO DAILY 90 days cholecalciferol (vitamin D3) 25 mcg PO DAILY 90 days lisinopril 30 mg PO DAILY 90 days Tobacco use date assessed: 09/01/23 Fall risk assessment: No Falls in past year Last assessed Fall Risk: 09/01/23 Dental Screening Dental Screen Date: 09/01/23 Did you have a dental visit in the last 12 months?: No Did you have a dental problem in the last 6 months where you did not have access to dental care?: No Was dental information given to patient?: No HPI 6mon F/U HPI Details Patient comes in today for her follow up visit States that she feels okay She denies any headaches or dizziness Denies any chest pains, no SOB No nausea/vomiting, no abdominal pain No change in bowel habits noted Needs all of her Rx refilled PFSH Medical History (Updated 09/01/23 @ 11:41 by Andrea Ruiz MD) Chronic kidney disease Colitis Vitamin D deficiency History of seborrheic keratosis Pure hypercholesterolemia Benign essential hypertension Surgical History Hx of cataract extraction H/O colonoscopy Family History Father No problems noted. Mother No problems noted. Brother In good health Son In good health Daughter In good health Social History Household Members: Spouse Housing: House Are you a primary critical care clinical nurse specialist to a significant other at home: No Do you presently have visiting nurse or other home services: No Alcohol intake: current Alcohol intake frequency: does not drink Alcohol type: wine Patient Tobacco Use Status: Never used Tobacco e-Cigarette/Vaping Use: Never Used Second Hand Smoke Exposure: Yes service: No Current occupational status: retired Cognitive needs: No Hearing needs: No Vision needs: Yes Questionnaire PHQ-9 Over the last 2 weeks, how often have you been bothered by any of the following problems? 1. Little interest or pleasure in doing things: not at all 2. Feeling down, depressed, or hopeless: not at all 3. Trouble falling or staying asleep, or sleeping too much: not at all 4. Feeling tired or having little energy: not at all 5. Poor appetite or overeating: not at all 6. Feeling bad about yourself - or that you are a failure or have let yourself or your family down: not at all 7. Trouble concentrating on things, such as reading the newspaper or watching television: not at all 8. Moving or speaking so slowly that other people could have noticed. Or the opposite - being so fidgety or restless that you have been moving around a lot more than usual: not at all 9. Thoughts that you would be better off or of hurting yourself in some way: not at all Total score: 0 Depression Screening Interpretation: Negative Depression Screening Done: Yes 32675 - PHQ-9 Billing: Yes Source: Developed by Drs. Manfred Sharma, Amina Meza, Parker Zuniga and colleagues, with an educational suresh from [employer]. Thrive Questionnaire Date Thrive assessed: 09/01/23 I am a: Patient What is your living situation today?: I have a steady place to live Within the past 12 months, did the food you bought not last and you didn't have the money to get more?: Never true Within the past 12 months, did you worry whether your food would run out before you got money to buy more?: Never true Do you have trouble paying for medicines?: No Do you have trouble getting transportation to medical appointments?: No Do you have trouble paying your heating and electricity bill?: No Do you have trouble taking care of your child, family member or friend?: No Do you have trouble with day-to-day activities such as bathing, preparing meals, shopping, managing finances, etc.?: No Are you currently unemployed and looking for a job?: No Are you interested in more education?: No Please select the resources that you would like help with: None Currently or been in a relationship where the following occur: no concerns reported THRIVE Score: 0 AUDIT C Alcohol Use Questionnaire (AUDIT-C) 1. How often do you have a drink containing alcohol?: Never 3. How often do you have six or more drinks on one occasion?: Never Total Score: 0 Score Reviewed/Action Taken: Yes OLIMPIA-7 AMB Questionnaire OLIMPIA-7 Date OLIMPIA - 7 assessed: 09/01/23 Feeling nervous, anxious, or on edge: 1 = Several days Not being able to stop or control worryin = Several days Worrying too much about different things: 1 = Several days Trouble relaxin = Several days Being so restless that it is hard to sit still: 1 = Several days Becoming easily annoyed or irritable: 1 = Several days Feeling afraid as if something awful might happen: 1 = Several days Total OLIMPIA-7 score (0-4 normal; 5-9 mild; 10-14 moderate; 15-21 severe): 7 Source: Developed by Drs. Manfred Sharma, Amina Meza, Parker Zuniga and colleagues, with an educational suresh from [employer]. Review of Systems Const Denies chills, Denies fatigue, Denies fever(s) and Denies headache(s) ENT Denies dysphagia, Denies dizziness, Denies otalgia, Denies headache(s), Denies neck pain, Denies odynophagia and Denies sore throat Card Denies chest pain, Denies palpitations and Denies dyspnea Resp Denies cough and Denies dyspnea GI Denies abdominal pain, Denies constipation, Denies dysphagia, Denies heartburn, Denies diarrhea, Denies nausea, Denies odynophagia and Denies vomiting Denies difficulty voiding, Denies nocturia, Denies dysuria and Denies urinary urgency Musc Denies back pain and Denies neck pain Skin/Breast Denies rash Neuro Denies dizziness and Denies headache(s) Endo Denies fatigue and Denies palpitations Physical exam (Primary Care) Vital Signs: Last Vital Signs Pulse 91 09/01/23 10:44 BP 180/100 H 09/01/23 10:44 Pulse Ox 95 09/01/23 10:44 Oxygen Delivery Method Room Air 09/01/23 10:44 BMI result Body Mass Index 20.6 Tobacco/Smoking Status: Tobacco use Status Tobacco use date assessed 09/01/23 09/01/23 10:45 Patient Tobacco Use Status Never used Tobacco 09/01/23 10:45 e-Cigarette/Vaping Use Never Used 09/01/23 10:45 PHQ-9: PHQ-9 Score PHQ-9: Total score 0 09/01/23 10:45 Depression Screening Interpretation: Negative Thrive Assessment: Date of Thrive Assessment Date Thrive assessed 09/01/23 09/01/23 10:45 Currently or been in a relationship where the following occur: no concerns reported Const General: no acute distress and alert HENMT Ears: TM's normal bilaterally and EAC's normal Throat: Yes posterior oropharynx normal and Yes tonsils normal (no TP congestion) Neck Neck: Yes no lymphadenopathy and Yes supple Resp Auscultation: clear to auscultation bilaterally, no rales and no wheezes Cardio Rate: regular rate Rhythm: regular rhythm Heart sounds: no murmurs GI Palpation (GI): Soft to palpation and nontender Auscultation: normal bowel sounds General: Yes no CVA tenderness Back/Spine/Pelvis Back: no CVA tenderness Skin Rashes: no rashes Extrem General: Yes no clubbing, cyanosis or edema Assessment and Plan Assessment & Plan (1) Benign essential hypertension: Code(s): I10 - Essential (primary) hypertension Plan: Reinforced low sodium diet - goal is systolic BP of at least 130 to 140 mm or less Continue Amlodipine 5 mg QD (Rx refilled) Will increase Lisinopril to 40 mg QD Patient is reminded to monitor her blood pressure regularly; will have our nurse navigators also help patient with this (2) Pure hypercholesterolemia: Code(s): E78.00 - Pure hypercholesterolemia, unspecified Plan: Reinforced low cholesterol diet Will recheck her labs and fasting lipids in 6 months for follow up (3) Chronic kidney disease: Code(s): N18.9 - Chronic kidney disease, unspecified Qualifiers: Chronic kidney disease stage: unspecified stage Qualified Code(s): N18.9 - Chronic kidney disease, unspecified Plan: Patient's renal function appears stable on her recent labs and she currently remains in early stage 2 CKD Will continue to monitor her renal function regularly (4) Vitamin D deficiency: Code(s): E55.9 - Vitamin D deficiency, unspecified Plan: Continue Vitamin D3 1000 units QD Plan Follow up in 6 months Orders: Orders Complete Blood Count Auto Diff 6 Months D64.9 - Anemia, unspecified UA CC w/rflx Micro + Cult 6 Months R30.0 - Dysuria Comprehensive [place]. Panel Fast 6 Months E78.00 - Pure hypercholesterolemia, unspecified Lipid Panel 6 Months E78.00 - Pure hypercholesterolemia, unspecified TSH reflex Free T4 6 Months E78.00 - Pure hypercholesterolemia, unspecified Vitamin D 25-OH Total 6 Months E55.9 - Vitamin D deficiency, unspecified Medications: Changed From lisinopril 30 mg PO DAILY 90 days 90 tabs 1RF I10 - Essential (primary) hypertension To lisinopril 40 mg PO DAILY 90 days 90 tabs 1RF I10 - Essential (primary) hypertension Refilled cholecalciferol (vitamin D3) 25 mcg PO DAILY 90 days 90 tabs 3RF R79.89 - Other specified abnormal findings of blood chemistry amlodipine 5 mg PO DAILY 90 days 90 tabs 1RF I10 - Essential (primary) hypertension Coding Level of Care Code Est Pt Level 4 (19546) Diagnoses Benign essential hypertension I10 Pure hypercholesterolemia E78.00 Chronic kidney disease, unspecified CKD stage N18.9 Chronic kidney disease stage: unspecified stage Vitamin D deficiency E55.9
[2023-09-01 11:15] VITALS: BP 164/100
== END 2023-09-01 11:23 | disposition home or self-care (01) ==
PROVIDERS: PCP Internal Medicine; Visit Provider Internal Medicine
DX: I12.9 Hypertensive chronic kidney disease with stage 1 through stage 4 chronic kidney disease, or unspecified chronic kidney disease (principal); E78.00 Pure hypercholesterolemia, unspecified; N18.2 Chronic kidney disease, stage 2 (mild); E55.9 Vitamin D deficiency, unspecified
CPT/HCPCS: 99214

== ENCOUNTER 2023-11-20 13:47 | Outpatient (REF) | payer MEDICARE, SELFPAY | END 2023-11-20 13:48 | disposition home or self-care (01) | LOC: HO.MAMMO 13:47 | PROVIDERS: PCP Internal Medicine; Visit Provider Internal Medicine | DX: Z12.31 Encounter for screening mammogram for malignant neoplasm of breast (principal) | CPT/HCPCS: 77063; 77067 ==

== ENCOUNTER → 2023-11-20 14:15 | Outpatient (BNV) | payer MEDICARE, SELFPAY | PROVIDERS: PCP Internal Medicine; Visit Provider Radiology Diagnostic Radiology | DX: Z12.31 Encounter for screening mammogram for malignant neoplasm of breast (principal) | CPT/HCPCS: 77063; 77067 ==

== ENCOUNTER 2024-05-12 10:20 | Outpatient (REF) | payer MEDICARE, SELFPAY ==
[2024-05-12 10:55] LABS: MANUAL DIFF FLAG NO
[2024-05-12 11:16] LABS: Basophils Percent Auto 0.2 % (0-2); Eosinophils Absolute Auto 0.2 X10*3/uL (0.0-0.4); Eosinophils Percent Auto 3.6 % (0-4); Hematocrit 44.1 % (37.0-47.0); Hemoglobin 14.4 g/dl (12.0-16.0); Imm Gran Abs Auto 0.02 X10*3/uL (0.00-0.03); Imm Gran Pct Auto 0.3 % (0.0-0.4); Lymphocytes Absolute Auto 2.2 X10*3/uL (1.2-4.9); Lymphocytes Percent Auto 36.6 % (20-40); Mean Corpuscular HGB Conc 32.7 g/dl (31.0-35.0); Mean Corpuscular Hemoglobin 29.2 pg (27.0-33.0); Mean Corpuscular Volume 89.5 fL (80.0-98.0); Monocytes Absolute Auto 0.4 X10*3/uL (0.1-1.2); Monocytes Percent Auto 7.1 % (2-11); Neutrophils Absolute Auto 3.2 x10*3/uL (2.0-8.3); Neutrophils Percent Auto 52.2 % (45-73); Platelet Count 192 X10*3/uL (160-400); Red Blood Count 4.93 X10*6/uL (4.20-5.50); Red Cell Distribution Width 12.6 % (11.0-16.0); White Blood Count 6.1 X10*3/uL (4.8-10.8)
[2024-05-12 11:55] LABS: Appearance Urine Clear; Color Urine Yellow; Glucose Urine UA Negative (Negative); Leukocyte Esterase Urine Trace (Negative); Nitrite Urine Negative (Negative); UMIC TRIGGER UACC YES; Urine Blood Negative (Negative); Urine Ketones Negative (Negative); Urine Protein Negative (Neg-Trace)
[2024-05-12 12:04] LABS: Bacteria Urine None Seen (None Seen); Hyaline Casts Urine 0-2 /LPF (0-2); RBC Urine 0-2 /HPF (0-2); Squamous Epithelial Cell Urine 0-2 /HPF (0-2); WBC Urine 0-5 /HPF (0-5)
[2024-05-12 12:05] LABS: Alanine Aminotransferase 15 U/L (0-31); Albumin Level 3.9 g/dL (3.5-5.0); Alkaline Phosphatase 69 U/L (39-117); Anion Gap 8 (12-20); Aspartate Amino Transferase 27 U/L (5-31); Bilirubin Total 0.8 mg/dL (0.0-1.0); Blood Urea Nitrogen 12 mg/dL (9-16); Carbon Dioxide 33 mmol/L (22-29); Chloride 104 mmol/L (96-108); Cholesterol 195 mg/dL (<200); Estimated Glomerular Filt Rate > 60; Glucose Fasting 87 mg/dL (60-99); HDL Cholesterol 60 mg/dL (>40); LDL Cholesterol Calculated 121 mg/dL (<100); Sodium 141 mmol/L (135-145); Total Protein 6.3 g/dL (6.5-8.0); Triglycerides 71 mg/dL (<150)
[2024-05-12 12:11] LABS: Vitamin D 25-OH Total 40.8 ng/mL (>30)
== END 2024-05-12 10:21 | disposition home or self-care (01) ==
LOC: HO.LAB 10:20
PROVIDERS: PCP Internal Medicine; Visit Provider Internal Medicine
DX: D64.9 Anemia, unspecified (principal); E55.9 Vitamin D deficiency, unspecified; E78.00 Pure hypercholesterolemia, unspecified
CPT/HCPCS: 36415; 80053; 80061; 81001; 82306; 84443; 85025

== ENCOUNTER 2024-05-20 16:46 | Outpatient (AMB) | payer MEDICARE, SELFPAY ==
[2024-05-20 16:56] VITALS: BP 186/78; PULSE 72; O2SAT 99; BMI 19.7
--- NOTE | 2024-05-20 16:56 | MHC.PC.OV ---
Vital Signs 05/20/24 16:56 05/20/24 16:58 Height 5 ft 2 in Weight 107 lb 8 oz BMI 19.7 BP 186/78 H 160/78 H Blood Pressure Location Lt brachial Rt brachial Position Sitting Sitting Pulse 72 Pulse Source Pulse Oximeter Pulse Oximetry (%) 99 Oxygen Delivery Method Room Air Intake Visit Reasons: 6mth f/u Customer Sales Distributor Required: No Accompanied by: Spouse Allergies No Known Allergies Allergy (Verified 05/20/24 16:58) Medication List - Last Reconciled 05/20/24 by Andrea Ruiz MD amlodipine 5 mg PO DAILY 90 days cholecalciferol (vitamin D3) 25 mcg PO DAILY 90 days lisinopril 40 mg PO DAILY 90 days Tobacco use date assessed: 09/01/23 Dental Screening Dental Screen Date: 09/01/23 HPI 6mth f/u HPI Details Patient comes in today for her follow-up visit States she has been experiencing increased anxiety lately as her daughter is currently going to [place] for treatment of metastatic breast cancer States that there are times she can not sleep well at night due to her increased anxiety and is not surprised that her blood pressure is up She denies any headaches or dizziness Denies any chest pains, no increased shortness of breath No nausea/vomiting, no abdominal pain No change in bowel habits noted She had her follow-up labs done last week - to discuss her results [facility] Medical History (Updated 05/21/24 @ 02:30 by Andrea Ruiz MD) Colitis Vitamin D deficiency History of seborrheic keratosis Pure hypercholesterolemia Benign essential hypertension Surgical History Hx of cataract extraction H/O colonoscopy Family History Father No problems noted. Mother No problems noted. Brother In good health Son In good health Daughter In good health Social History Household Members: Spouse Housing: House Are you a primary primary care sales representative to a significant other at home: No Do you presently have visiting nurse or other home services: No Alcohol intake: current Alcohol intake frequency: does not drink Alcohol type: wine Patient Tobacco Use Status: Never used Tobacco e-Cigarette/Vaping Use: Never Used Second Hand Smoke Exposure: Yes service: No Current occupational status: retired Cognitive needs: No Hearing needs: No Vision needs: Yes Questionnaire Thrive Questionnaire Date Thrive assessed: 09/01/23 OLIMPIA-7 AMB Questionnaire OLIMPIA-7 Date OLIMPIA - 7 assessed: 09/01/23 Source: Developed by Drs. Manfred Sharma, Amina Meza, Parker Zuniga and colleagues, with an educational suresh from [employer]. Review of Systems Const Denies chills, Reports difficulty sleeping, Denies fatigue, Denies fever(s) and Denies headache(s) ENT Denies dysphagia, Denies dizziness, Denies otalgia, Denies headache(s), Denies neck pain, Denies odynophagia and Denies sore throat Card Denies chest pain, Denies palpitations and Denies dyspnea Resp Denies chest congestion, Denies cough and Denies dyspnea GI Denies abdominal pain, Denies constipation, Denies dysphagia, Denies heartburn, Denies diarrhea, Denies nausea, Denies odynophagia and Denies vomiting Denies difficulty voiding, Denies nocturia, Denies dysuria and Denies urinary urgency Musc Denies back pain and Denies neck pain Skin/Breast Denies rash Neuro Denies dizziness and Denies headache(s) Psych Reports anxiety (increased) Endo Denies fatigue and Denies palpitations Physical exam (Primary Care) Vital Signs: Last Vital Signs Pulse 72 05/20/24 16:56 BP 160/78 H 05/20/24 16:58 Pulse Ox 99 05/20/24 16:56 Oxygen Delivery Method Room Air 05/20/24 16:56 BMI result Body Mass Index 19.7 Tobacco/Smoking Status: Tobacco use Status Tobacco use date assessed 09/01/23 05/20/24 16:57 Patient Tobacco Use Status Never used Tobacco 05/20/24 16:57 e-Cigarette/Vaping Use Never Used 05/20/24 16:57 Thrive Assessment: Date of Thrive Assessment Date Thrive assessed 09/01/23 05/20/24 16:57 Const General: no acute distress and alert HENMT Ears: TM's normal bilaterally and EAC's normal Throat: Yes posterior oropharynx normal and Yes tonsils normal (no TP congestion) Neck Neck: Yes no lymphadenopathy and Yes supple Resp Auscultation: clear to auscultation bilaterally, no rales and no wheezes Cardio Rate: regular rate Rhythm: regular rhythm Heart sounds: no murmurs GI Palpation (GI): Soft to palpation and nontender Auscultation: normal bowel sounds General: Yes no CVA tenderness Back/Spine/Pelvis Back: no CVA tenderness Skin Rashes: no rashes Extrem General: Yes no clubbing, cyanosis or edema Office Procedures Flu Questionnaire Does the patient have a severe egg allergy?: No Immunizations Fluarix Triv [id number] (PF) 45 mcg (15 mcg x 3)/0.5 mL IM syringe Performing Provider: Andrea Ruiz MD [place] [facility] [place] [facility] Documented (not given) by: ZION Cooper on 05/20/24 16:57 Reason Not Given: Patient Refused Results Reviewed Results Reviewed: Laboratory Tests 05/12/24 05/12/24 10:52 10:53 WBC 6.1 Hgb 14.4 Hct 44.1 Plt Count 192 Sodium 141 Potassium 4.0 Creatinine 0.88 Estimated GFR > 60 Fasting Glucose 87 Calcium 9.0 D AST 27 ALT 15 Triglycerides 71 Cholesterol 195 LDL Cholesterol, Calc 121 H HDL Cholesterol 60 25-OH Vitamin D Total 40.8 TSH 1.90 Ur Specific [place] 1.010 Urine Protein Negative Urine Glucose (UA) Negative Urine Blood Negative Urine Nitrite Negative Ur Leukocyte Esterase Trace H Coding Level of Care Code Est Pt Level 4 (99649) Diagnoses Benign essential hypertension I10 Pure hypercholesterolemia E78.00 Vitamin D deficiency E55.9 Assessment & Plan Assessment & Plan (1) Benign essential hypertension: Code(s): I10 - Essential (primary) hypertension Category: Medical Plan: Reinforced low sodium diet - goal is systolic BP of at least 130 to 140 mm or less Her blood pressure is currently high - this is likely due to her recent increased anxiety and difficulty sleeping at night , related to her daughter's recent health struggles with metastatic breast cancer although she just received word from her that her current treatment in [place] is showing some improvement Continue Amlodipine 5 mg QD and Lisinopril 40 mg QD for now Patient is reminded to continue monitoring her blood pressure regularly (2) Pure hypercholesterolemia: Code(s): E78.00 - Pure hypercholesterolemia, unspecified Category: Medical Plan: Results of her labs done last week reviewed and discussed with patient Reinforced low cholesterol diet Will recheck her labs and fasting lipids in 6 months for follow up (3) Vitamin D deficiency: Code(s): E55.9 - Vitamin D deficiency, unspecified Category: Medical Plan: Continue Vitamin D3 1000 units QD Plan Follow up in 6 months Orders: Orders Influenza [id number] Immunization 05/20/24 Z23 - Encounter for immunization Complete Blood Count Auto Diff 6 Months D64.9 - Anemia, unspecified Lipid Panel 6 Months E78.00 - Pure hypercholesterolemia, unspecified Comprehensive [place]. Panel Fast 6 Months E78.00 - Pure hypercholesterolemia, unspecified
[2024-05-20 16:58] VITALS: BP 160/78
== END 2024-05-20 17:12 | disposition home or self-care (01) ==
PROVIDERS: PCP Internal Medicine; Visit Provider Internal Medicine
DX: Z23 Encounter for immunization (principal)

== ENCOUNTER → 2024-05-20 16:46 | Outpatient (BNVA) | payer MEDICARE, SELFPAY | PROVIDERS: PCP Internal Medicine; Visit Provider Internal Medicine | DX: I10 Essential (primary) hypertension (principal); E78.00 Pure hypercholesterolemia, unspecified; E55.9 Vitamin D deficiency, unspecified | CPT/HCPCS: 90471; 99212 ==

== ENCOUNTER 2024-11-07 10:59 | Outpatient (REF) | payer MEDICARE, SELFPAY ==
[2024-11-07 11:13] LABS: MANUAL DIFF FLAG NO
[2024-11-07 11:47] LABS: Basophils Percent Auto 0.4 % (0-2); Eosinophils Absolute Auto 0.3 X10*3/uL (0.0-0.4); Eosinophils Percent Auto 4.2 % (0-4); Hemoglobin 14.2 g/dl (12.0-16.0); Imm Gran Abs Auto 0.02 X10*3/uL (0.00-0.03); Imm Gran Pct Auto 0.3 % (0.0-0.4); Lymphocytes Absolute Auto 2.7 X10*3/uL (1.2-4.9); Lymphocytes Percent Auto 39.5 % (20-40); Mean Corpuscular Hemoglobin 29.4 pg (27.0-33.0); Mean Platelet Volume 10.3 fL (9.4-12.3); Monocytes Absolute Auto 0.5 X10*3/uL (0.1-1.2); Monocytes Percent Auto 7.7 % (2-11); Neutrophils Absolute Auto 3.3 x10*3/uL (2.0-8.3); Neutrophils Percent Auto 47.9 % (45-73); Platelet Count 172 X10*3/uL (160-400); Red Blood Count 4.83 X10*6/uL (4.20-5.50); Red Cell Distribution Width 13.1 % (11.0-16.0); White Blood Count 6.9 X10*3/uL (4.8-10.8)
[2024-11-07 11:56] LABS: Appearance Urine Clear; Color Urine Yellow; Glucose Urine UA Negative (Negative); Leukocyte Esterase Urine Small (1+) (Negative); Nitrite Urine Negative (Negative); UMIC TRIGGER UACC YES; Urine Blood Trace (Negative); Urine Ketones Negative (Negative); Urine Protein Negative (Neg-Trace)
[2024-11-07 12:08] LABS: Bacteria Urine Trace (None Seen); Hyaline Casts Urine 0-2 /LPF (0-2); RBC Urine 0-2 /HPF (0-2); Squamous Epithelial Cell Urine 0-2 /HPF (0-2); UACC Culture Trigger YES; WBC Urine 0-5 /HPF (0-5)
[2024-11-07 12:54] LABS: Alanine Aminotransferase 14 U/L (0-31); Alkaline Phosphatase 67 U/L (39-117); Anion Gap 9 (12-20); Aspartate Amino Transferase 25 U/L (5-31); Bilirubin Total 0.8 mg/dL (0.0-1.0); Blood Urea Nitrogen 13 mg/dL (9-16); Calcium 9.3 mg/dL (8.4-10.2); Carbon Dioxide 31 mmol/L (22-29); Chloride 107 mmol/L (96-108); Cholesterol 191 mg/dL (<200); Estimated Glomerular Filt Rate > 60; Glucose Fasting 89 mg/dL (60-99); HDL Cholesterol 59 mg/dL (>40); LDL Cholesterol Calculated 120 mg/dL (<100); Potassium 4.2 mmol/L (3.3-5.1); Sodium 143 mmol/L (135-145); Total Protein 6.4 g/dL (6.5-8.0); Triglycerides 61 mg/dL (<150)
== END 2024-11-07 11:00 | disposition home or self-care (01) ==
LOC: HO.LAB 10:59
PROVIDERS: PCP Internal Medicine; Visit Provider Internal Medicine
DX: D64.9 Anemia, unspecified (principal); E78.00 Pure hypercholesterolemia, unspecified; R30.0 Dysuria
CPT/HCPCS: 36415; 80053; 80061; 81001; 85025; 87086

== ENCOUNTER 2024-11-14 16:38 | Outpatient (AMB) | payer MEDICARE, SELFPAY ==
--- NOTE | 2024-11-14 16:45 | MHC.PC.OV ---
Vital Signs 11/14/24 16:46 Height 5 ft 2 in Weight 103 lb 8 oz BMI 18.9 BP 140/86 H Blood Pressure Location Lt brachial Position Sitting Pulse 89 Pulse Source Pulse Oximeter Pulse Oximetry (%) 96 Oxygen Delivery Method Room Air Intake Visit Reasons: FOLLOW UP 6 MONTHS HTN Lab Manager Required: No Accompanied by: Self / Same As Patient Allergies lisinopril Adverse Reaction (Intermediate, Verified 11/14/24 17:21) recurrent cough Medication List - Last Reconciled 11/14/24 by Andrea Ruiz MD amlodipine 5 mg PO DAILY 90 days cholecalciferol (vitamin D3) 25 mcg PO DAILY 90 days lisinopril 40 mg PO DAILY 90 days Tobacco use date assessed: 11/14/24 Fall risk assessment: No Falls in past year Last assessed Fall Risk: 11/14/24 Dental Screening Dental Screen Date: 11/14/24 Did you have a dental visit in the last 12 months?: Yes Did you have a dental problem in the last 6 months where you did not have access to dental care?: No Was dental information given to patient?: Patient has dentist HPI FOLLOW UP 6 MONTHS HTN HPI Details Patient comes in today for her follow-up visit States that she feels okay She denies any headaches or dizziness Denies any chest pains, no increased shortness of breath but has noticed that she's had a recurrent cough since the beginning of the year States that her cough is mostly non-productive although she would cough up minimal thick whitish phlegm at times Also notes that her cough seems to occur more often towards the later part of the day She denies any sore throat but also reports experiencing frequent runny nose over the past few weeks - thinks that she has allergies and would like to know what she can take for allergies that won't affect her blood pressure No nausea/vomiting, no abdominal pain No change in bowel habits noted She had her follow-up labs done last week - to discuss her results [facility] Medical History Allergic rhinitis Colitis Vitamin D deficiency History of seborrheic keratosis Pure hypercholesterolemia Benign essential hypertension Surgical History Hx of cataract extraction H/O colonoscopy Family History Father No problems noted. Mother No problems noted. Brother In good health Son In good health Daughter In good health Social History Household Members: Spouse Housing: House Are you a primary residential care facility manager to a significant other at home: No Do you presently have visiting nurse or other home services: No Alcohol intake: current Alcohol intake frequency: does not drink Alcohol type: wine Patient Tobacco Use Status: Never used Tobacco e-Cigarette/Vaping Use: Never Used Second Hand Smoke Exposure: Yes service: No Current occupational status: retired Cognitive needs: No Hearing needs: No Vision needs: Yes Questionnaire PHQ-9 Over the last 2 weeks, how often have you been bothered by any of the following problems? 1. Little interest or pleasure in doing things: not at all 2. Feeling down, depressed, or hopeless: not at all 3. Trouble falling or staying asleep, or sleeping too much: not at all 4. Feeling tired or having little energy: not at all 5. Poor appetite or overeating: not at all 6. Feeling bad about yourself - or that you are a failure or have let yourself or your family down: not at all 7. Trouble concentrating on things, such as reading the newspaper or watching television: not at all 8. Moving or speaking so slowly that other people could have noticed. Or the opposite - being so fidgety or restless that you have been moving around a lot more than usual: not at all 9. Thoughts that you would be better off or of hurting yourself in some way: not at all Total score: 0 Depression Screening Interpretation: Negative Depression Screening Done: Yes 67222 - PHQ-9 Billing: Yes Source: Developed by Drs. Manfred Sharma, Amina Meza, Parker Zuniga and colleagues, with an educational suresh from [employer] Thrive Questionnaire Date Thrive assessed: 11/14/24 I am a: Patient What is your living situation today?: I have a steady place to live Within the past 12 months, did the food you bought not last and you didn't have the money to get more?: Never true Within the past 12 months, did you worry whether your food would run out before you got money to buy more?: Never true Do you have trouble paying for medicines?: No Do you have trouble getting transportation to medical appointments?: No Do you have trouble paying your heating and electricity bill?: No Do you have trouble taking care of your child, family member or friend?: No Do you have trouble with day-to-day activities such as bathing, preparing meals, shopping, managing finances, etc.?: No Are you currently unemployed and looking for a job?: No Are you interested in more education?: No Please select the resources that you would like help with: None Currently or been in a relationship where the following occur: No concerns reported THRIVE Score: 0 AUDIT C Alcohol Use Questionnaire (AUDIT-C) 1. How often do you have a drink containing alcohol?: Never 3. How often do you have six or more drinks on one occasion?: Never Total Score: 0 Score Reviewed/Action Taken: Yes OLIMIPA-7 AMB Questionnaire OLIMPIA-7 Date OLIMPIA - 7 assessed: 11/14/24 Feeling nervous, anxious, or on edge: 0 = Not at all Not being able to stop or control worryin = Not at all Worrying too much about different things: 0 = Not at all Trouble relaxin = Not at all Being so restless that it is hard to sit still: 0 = Not at all Becoming easily annoyed or irritable: 0 = Not at all Feeling afraid as if something awful might happen: 0 = Not at all Total OLIMPIA-7 score (0-4 normal; 5-9 mild; 10-14 moderate; 15-21 severe): 0 Source: Developed by Drs. Manfred Sharma, Amina Meza, Parker Zuniga and colleagues, with an educational suresh from [employer] Review of Systems Const Denies chills, Reports difficulty sleeping, Denies fatigue, Denies fever(s) and Denies headache(s) ENT Denies dysphagia, Denies dizziness, Denies otalgia, Denies headache(s), Denies neck pain, Denies odynophagia and Denies sore throat Card Denies chest pain, Denies palpitations and Denies dyspnea Resp Denies chest congestion, Reports cough (recurrent, non-productive - see HPI for details) and Denies dyspnea GI Denies abdominal pain, Denies constipation, Denies dysphagia, Denies heartburn, Denies diarrhea, Denies nausea, Denies odynophagia and Denies vomiting Denies difficulty voiding, Denies nocturia, Denies dysuria and Denies urinary urgency Musc Denies back pain and Denies neck pain Skin/Breast Denies rash Neuro Denies dizziness and Denies headache(s) Psych Reports anxiety Endo Denies fatigue and Denies palpitations Aller/Immun Reports seasonal rhinorrhea Physical exam (Primary Care) Vital Signs: Last Vital Signs Pulse 89 11/14/24 16:46 BP 140/86 H 11/14/24 16:46 Pulse Ox 96 11/14/24 16:46 Oxygen Delivery Method Room Air 11/14/24 16:46 BMI result Body Mass Index 18.9 Tobacco/Smoking Status: Tobacco use Status Tobacco use date assessed 11/14/24 11/14/24 16:48 Patient Tobacco Use Status Never used Tobacco 11/14/24 16:48 e-Cigarette/Vaping Use Never Used 11/14/24 16:48 PHQ-9: PHQ-9 Score PHQ-9: Total score 0 11/14/24 16:55 Depression Screening Interpretation: Negative Thrive Assessment: Date of Thrive Assessment Date Thrive assessed 11/14/24 11/14/24 16:48 Currently or been in a relationship where the following occur: No concerns reported Const General: no acute distress and alert HENMT Ears: TM's normal bilaterally and EAC's normal Throat: Yes posterior oropharynx normal and Yes tonsils normal (no TP congestion) Neck Neck: Yes supple and No lymphadenopathy Thyroid: Thyroid normal Resp Auscultation: clear to auscultation bilaterally, no rales and no wheezes Cardio Rate: regular rate Rhythm: regular rhythm Heart sounds: no murmurs GI Palpation (GI): Soft to palpation and nontender Auscultation: normal bowel sounds General: Yes no CVA tenderness Back/Spine/Pelvis Back: no CVA tenderness Thoracic/Lumbar Spine: No lumbar spinal tenderness Skin Rashes: no rashes Extrem General: Yes no clubbing, cyanosis or edema Results Reviewed Results Reviewed: Laboratory Tests 11/07/24 11/07/24 11:06 11:11 WBC 6.9 Hgb 14.2 Hct 43.0 Plt Count 172 Sodium 143 Potassium 4.2 Creatinine 0.80 Estimated GFR > 60 Fasting Glucose 89 AST 25 ALT 14 Triglycerides 61 Cholesterol 191 LDL Cholesterol, Calc 120 H HDL Cholesterol 59 Ur Specific [place] 1.010 Urine Protein Negative Urine Glucose (UA) Negative Urine Blood Trace H Urine Nitrite Negative Ur Leukocyte Esterase Small (1+) H Coding Level of Care Code Est Pt Level 4 (05746) Complex EM visit Add On G2211 Diagnoses Benign essential hypertension I10 Pure hypercholesterolemia E78.00 Vitamin D deficiency E55.9 Recurrent nonproductive cough R05.8 Seasonal allergic rhinitis due to pollen J30.1 Allergic rhinitis trigger: pollen Allergic rhinitis seasonality: seasonal Additional Codes PHQ-9 - 96034 - PHQ-9 Billing: Yes ([id number]) Assessment & Plan Assessment & Plan (1) Benign essential hypertension: Code(s): I10 - Essential (primary) hypertension Category: Medical Plan: Reinforced low sodium diet - goal is systolic BP of at least 130 to 140 mm or less Continue Amlodipine 5 mg QD; she is also on Lisinopril 40 mg QD but we will be switching this out today to Losartan 100 mg QD due to side effects (cough) Patient is reminded to continue monitoring her blood pressure regularly (2) Pure hypercholesterolemia: Code(s): E78.00 - Pure hypercholesterolemia, unspecified Category: Medical Plan: Results of her labs done last week reviewed and discussed with patient - have advised her that her cholesterol levels are acceptable and are mostly unchanged from previous Reinforced low cholesterol diet Will recheck her labs and fasting lipids in 6 months for follow up (3) Vitamin D deficiency: Code(s): E55.9 - Vitamin D deficiency, unspecified Category: Medical Plan: Continue Vitamin D3 1000 units QD (4) Recurrent nonproductive cough: Code(s): R05.8 - Other specified cough Category: Medical Plan: Have advised patient that her recurrent cough is likely a side effect of her Lisinopril As she is finding that her recurrent cough is becoming bothersome for her, will switch out her Lisinopril 40 mg to Losartan 100 mg QD (5) Allergic rhinitis: Code(s): J30.9 - Allergic rhinitis, unspecified Category: Medical Qualifiers: Allergic rhinitis trigger: pollen Allergic rhinitis seasonality: seasonal Qualified Code(s): J30.1 - Allergic rhinitis due to pollen Plan: Will start patient on Loratadine 10 mg QD PRN Plan Follow up in 6 months Orders: Orders Complete Blood Count Auto Diff 6 Months D64.9 - Anemia, unspecified UA CC w/rflx Micro + Cult 6 Months R30.0 - Dysuria Comprehensive [place]. Panel Fast 6 Months E78.00 - Pure hypercholesterolemia, unspecified Lipid Panel 6 Months E78.00 - Pure hypercholesterolemia, unspecified Medications: New loratadine 10 mg PO DAILY 90 days PRN 90 tabs 3RF allergy symptoms J30.9 - Allergic rhinitis, unspecified losartan 100 mg PO DAILY 90 days 90 tabs 1RF Refilled cholecalciferol (vitamin D3) 25 mcg PO DAILY 90 days 90 tabs 3RF R79.89 - Other specified abnormal findings of blood chemistry Discontinued lisinopril Discontinued Reason: Doctor's Order 40 mg PO DAILY 90 days 90 tabs 1RF I10 - Essential (primary) hypertension
[2024-11-14 16:46] VITALS: BP 140/86; PULSE 89; O2SAT 96; BMI 18.9
== END 2024-11-14 17:41 | disposition home or self-care (01) ==
LOC: HO.HMCH 16:39
PROVIDERS: PCP Internal Medicine; Visit Provider Internal Medicine
DX: I10 Essential (primary) hypertension (principal); E78.00 Pure hypercholesterolemia, unspecified; E55.9 Vitamin D deficiency, unspecified; R05.8 Other specified cough; J30.1 Allergic rhinitis due to pollen

== ENCOUNTER → 2024-11-14 16:38 | Outpatient (BNVA) | payer MEDICARE, SELFPAY | PROVIDERS: PCP Internal Medicine; Visit Provider Internal Medicine | DX: I10 Essential (primary) hypertension (principal); E78.00 Pure hypercholesterolemia, unspecified; E55.9 Vitamin D deficiency, unspecified; R05.8 Other specified cough; J30.1 Allergic rhinitis due to pollen | CPT/HCPCS: 96127; 99212 ==

== ENCOUNTER 2024-11-28 10:19 | Outpatient (REF) | payer MEDICARE, SELFPAY | END 2024-11-28 10:20 | disposition home or self-care (01) | LOC: HO.MAMMO 10:19 | PROVIDERS: PCP Internal Medicine; Visit Provider Internal Medicine | DX: Z12.31 Encounter for screening mammogram for malignant neoplasm of breast (principal) | CPT/HCPCS: 77063; 77067 ==

== ENCOUNTER → 2024-11-28 11:00 | Outpatient (BNV) | payer MEDICARE, SELFPAY | PROVIDERS: PCP Internal Medicine; Visit Provider Internal Medicine | DX: Z12.31 Encounter for screening mammogram for malignant neoplasm of breast (principal) | CPT/HCPCS: 77063; 77067 ==

== ENCOUNTER 2025-05-10 10:13 | Outpatient (REF) | payer MEDICARE, SELFPAY ==
[2025-05-10 11:16] LABS: Hematocrit 45.6 % (37.0-47.0); Hemoglobin 14.7 g/dl (12.0-16.0); Imm Gran Abs Auto 0.01 X10*3/uL (0.00-0.03); Imm Gran Pct Auto 0.2 % (0.0-0.4); Lymphocytes Absolute Auto 2.5 X10*3/uL (1.2-4.9); MANUAL DIFF FLAG NO; Mean Corpuscular HGB Conc 32.2 g/dl (31.0-35.0); Mean Corpuscular Hemoglobin 28.9 pg (27.0-33.0); Mean Corpuscular Volume 89.8 fL (80.0-98.0); NRBC Abs Auto 0.000 X10*3/uL (0.0-0.012); NRBC Pct Auto 0.0 /100WBC (0.0-0.2); Platelet Count 174 X10*3/uL (160-400); Red Blood Count 5.08 X10*6/uL (4.20-5.50); White Blood Count 6.0 X10*3/uL (4.8-10.8)
[2025-05-10 11:32] LABS: Appearance Urine Clear; Glucose Urine UA Negative (Negative); PH 7.0 (5.0-9.0); Specific Gravity - Urine 1.010 (1.005-1.025)
[2025-05-10 12:00] LABS: Alanine Aminotransferase 16 U/L (0-31); Albumin Level 4.2 g/dL (3.5-5.0); Alkaline Phosphatase 70 U/L (39-117); Anion Gap 10 (12-20); Aspartate Amino Transferase 27 U/L (5-31); Blood Urea Nitrogen 12 mg/dL (9-16); Calcium 9.4 mg/dL (8.4-10.2); Carbon Dioxide 32 mmol/L (22-29); Chloride 106 mmol/L (96-108); Cholesterol 205 mg/dL (<200); Estimated Glomerular Filt Rate > 60; HDL Cholesterol 61 mg/dL (>40); Potassium 3.7 mmol/L (3.3-5.1); Sodium 144 mmol/L (135-145); Total Protein 6.5 g/dL (6.5-8.0); Triglycerides 97 mg/dL (<150)
--- OUTSIDE RECORDS SUMMARY | 2025-05-10 12:01 | XMS_ITS ---
Author Organization Unknown ENCOUNTERS Encounter Performer Location Date Diagnosis Diagnosis Status Pre Admit [address] [id number] [address] [address] [id number] [facility] Inpatient [facility] [address] [place] [id number] [place] Emergency [address] [id number] [facility] Emergency [address] [id number] R[place]Y *Note: Encounters from your own facility or health system may be excluded. Allergies, Adverse Reactions, Alerts Allergen Type Severity Identification Date Medications Name Date Quantity Days Supplied GPI Number
== END 2025-05-10 10:14 | disposition home or self-care (01) ==
LOC: HO.LAB 10:13
PROVIDERS: PCP Internal Medicine; Visit Provider Internal Medicine
DX: R30.0 Dysuria (principal); E78.00 Pure hypercholesterolemia, unspecified; D64.9 Anemia, unspecified
CPT/HCPCS: 36415; 80053; 80061; 81003; 85025

== ENCOUNTER 2025-05-15 16:08 | Outpatient (AMB) | payer MEDICARE, SELFPAY ==
[2025-05-15 16:14] VITALS: BP 180/106; PULSE 92; O2SAT 96; BMI 19.6
--- NOTE | 2025-05-15 16:14 | MHC.PC.OV ---
Vital Signs 05/15/25 16:14 05/15/25 16:56 Height 5 ft 2 in Weight 107 lb 2 oz BMI 19.6 BP 180/106 H 170/90 H Blood Pressure Location Lt brachial Lt brachial Position Sitting Sitting Pulse 92 Pulse Source Pulse Oximeter Pulse Oximetry (%) 96 Oxygen Delivery Method Room Air Intake Visit Reasons: HTN, hyperlipidemia, Vitamin D deficiency Slitting Machine Feeder Required: No Accompanied by: Self / Same As Patient Allergies lisinopril Adverse Reaction (Intermediate, Verified 05/15/25 16:46) recurrent cough Medication List - Last Reconciled 05/15/25 by Andrea Ruiz MD amlodipine 5 mg PO DAILY 90 days cholecalciferol (vitamin D3) 25 mcg PO DAILY 90 days loratadine 10 mg PO DAILY PRN 90 days losartan 100 mg PO DAILY 90 days Tobacco use date assessed: 05/15/25 Fall risk assessment: No Falls in past year Last assessed Fall Risk: 05/15/25 Dental Screening Dental Screen Date: 05/15/25 Did you have a dental visit in the last 12 months?: No Did you have a dental problem in the last 6 months where you did not have access to dental care?: No Was dental information given to patient?: No HPI HTN, hyperlipidemia, Vitamin D deficiency HPI Details Patient comes in today for her follow-up visit States that she feels okay but her nose is still constantly running - worse in the afternoon and at night She has been taking Loratadine daily with no relief She denies any headaches or dizziness; denies any fever or sore throat Denies any chest pains, no increased shortness of breath No nausea/vomiting, no abdominal pain No change in bowel habits noted She had her follow-up labs done a few days ago - to discuss her results [facility] Medical History Allergic rhinitis Colitis Vitamin D deficiency History of seborrheic keratosis Pure hypercholesterolemia Benign essential hypertension Surgical History Hx of cataract extraction H/O colonoscopy Family History Father No problems noted. Mother No problems noted. Brother In good health Son In good health Daughter In good health Social History Household Members: Spouse Housing: House Are you a primary healthcare project manager to a significant other at home: No Do you presently have visiting nurse or other home services: No Alcohol intake: current Alcohol intake frequency: does not drink Alcohol type: wine Patient Tobacco Use Status: Never used Tobacco e-Cigarette/Vaping Use: Never Used Second Hand Smoke Exposure: Yes service: No Current occupational status: retired Cognitive needs: No Hearing needs: No Vision needs: Yes Questionnaire PHQ-9 Over the last 2 weeks, how often have you been bothered by any of the following problems? 1. Little interest or pleasure in doing things: not at all 2. Feeling down, depressed, or hopeless: not at all 3. Trouble falling or staying asleep, or sleeping too much: not at all 4. Feeling tired or having little energy: not at all 5. Poor appetite or overeating: not at all 6. Feeling bad about yourself - or that you are a failure or have let yourself or your family down: not at all 7. Trouble concentrating on things, such as reading the newspaper or watching television: not at all 8. Moving or speaking so slowly that other people could have noticed. Or the opposite - being so fidgety or restless that you have been moving around a lot more than usual: not at all 9. Thoughts that you would be better off or of hurting yourself in some way: not at all Total score: 0 Depression Screening Interpretation: Negative Depression Screening Done: Yes 88689 - PHQ-9 Billing: Yes Source: Developed by Drs. Manfred Sharma, Amina Meza, Parker Zuniga and colleagues, with an educational suresh from [employer]. Thrive Questionnaire Date Thrive assessed: 05/15/25 I am a: Patient What is your living situation today?: I have a steady place to live Within the past 12 months, did the food you bought not last and you didn't have the money to get more?: I choose not to answer this question Within the past 12 months, did you worry whether your food would run out before you got money to buy more?: I choose not to answer this question Do you have trouble paying for medicines?: I choose not to answer this question Do you have trouble getting transportation to medical appointments?: I choose not to answer this question Do you have trouble paying your heating and electricity bill?: I choose not to answer this question Do you have trouble taking care of your child, family member or friend?: No Do you have trouble with day-to-day activities such as bathing, preparing meals, shopping, managing finances, etc.?: No Are you currently unemployed and looking for a job?: No Are you interested in more education?: I choose not to answer this question Please select the resources that you would like help with: None Currently or been in a relationship where the following occur: I choose not to answer THRIVE Score: 0 AUDIT C Alcohol Use Questionnaire (AUDIT-C) 1. How often do you have a drink containing alcohol?: 2-4 times a month 2. How many drinks containing alcohol do you have on a typical day when you are drinking?: 1 or 2 3. How often do you have six or more drinks on one occasion?: Never Total Score: 2 Score Reviewed/Action Taken: Yes OLIMPIA-7 AMB Questionnaire OLIMPIA-7 Date OLIMPIA - 7 assessed: 05/15/25 Feeling nervous, anxious, or on edge: 0 = Not at all Not being able to stop or control worryin = Not at all Worrying too much about different things: 0 = Not at all Trouble relaxin = Not at all Being so restless that it is hard to sit still: 0 = Not at all Becoming easily annoyed or irritable: 0 = Not at all Feeling afraid as if something awful might happen: 0 = Not at all Total OLIMPIA-7 score (0-4 normal; 5-9 mild; 10-14 moderate; 15-21 severe): 0 Source: Developed by Drs. Manfred Sharma, Amina Meza, Parker Zuniga and colleagues, with an educational suresh from [employer]. Review of Systems Const Denies chills, Reports difficulty sleeping, Denies fatigue, Denies fever(s) and Denies headache(s) ENT Denies dysphagia, Denies dizziness, Denies otalgia, Denies headache(s), Reports nasal discharge (see HPI for details), Denies neck pain, Denies odynophagia and Denies sore throat Card Denies chest pain, Denies palpitations and Denies dyspnea Resp Denies chest congestion, Denies cough and Denies dyspnea GI Denies abdominal pain, Denies constipation, Denies dysphagia, Denies heartburn, Denies diarrhea, Denies nausea, Denies odynophagia and Denies vomiting Denies difficulty voiding, Denies nocturia, Denies dysuria and Denies urinary urgency Musc Denies back pain and Denies neck pain Skin/Breast Denies rash Neuro Denies dizziness and Denies headache(s) Psych Reports anxiety Endo Denies fatigue and Denies palpitations Aller/Immun Reports seasonal rhinorrhea Physical exam (Primary Care) Vital Signs: Last Vital Signs Pulse 92 05/15/25 16:14 BP 170/90 H 05/15/25 16:56 Pulse Ox 96 05/15/25 16:14 Oxygen Delivery Method Room Air 05/15/25 16:14 BMI result Body Mass Index 19.6 Tobacco/Smoking Status: Tobacco use Status Tobacco use date assessed 05/15/25 05/15/25 16:15 Patient Tobacco Use Status Never used Tobacco 05/15/25 16:15 e-Cigarette/Vaping Use Never Used 05/15/25 16:15 PHQ-9: PHQ-9 Score PHQ-9: Total score 0 05/15/25 16:48 Depression Screening Interpretation: Negative Thrive Assessment: Date of Thrive Assessment Date Thrive assessed 05/15/25 05/15/25 16:15 Currently or been in a relationship where the following occur: I choose not to answer Const General: no acute distress and alert HENMT Ears: TM's normal bilaterally and EAC's normal Throat: Yes posterior oropharynx normal and Yes tonsils normal (no TP congestion) Neck Neck: Yes supple and No lymphadenopathy Thyroid: Thyroid normal Resp Auscultation: clear to auscultation bilaterally, no rales and no wheezes Cardio Rate: regular rate Rhythm: regular rhythm Heart sounds: no murmurs GI Palpation (GI): Soft to palpation and nontender Auscultation: normal bowel sounds General: Yes no CVA tenderness Back/Spine/Pelvis Back: no CVA tenderness Thoracic/Lumbar Spine: No lumbar spinal tenderness Skin Rashes: no rashes Extrem General: Yes no clubbing, cyanosis or edema Results Reviewed Results Reviewed: Laboratory Tests 05/10/25 05/10/25 10:22 10:24 WBC 6.0 Hgb 14.7 Hct 45.6 Plt Count 174 Sodium 144 Potassium 3.7 Creatinine 0.86 Estimated GFR > 60 Fasting Glucose 93 Calcium 9.4 AST 27 ALT 16 Triglycerides 97 Cholesterol 205 H LDL Cholesterol, Calc 125 H HDL Cholesterol 61 Ur Specific Waves 1.010 Urine Protein Negative Urine Glucose (UA) Negative Urine Blood Negative Urine Nitrite Negative Ur Leukocyte Esterase Negative Coding Level of Care Code Est Pt Level 4 (99237) Diagnoses Benign essential hypertension I10 Pure hypercholesterolemia E78.00 Vitamin D deficiency E55.9 Seasonal allergic rhinitis due to pollen J30.1 Allergic rhinitis trigger: pollen Allergic rhinitis seasonality: seasonal Additional Codes PHQ-9 - 50883 - PHQ-9 Billing: Yes ([id number]) Assessment & Plan Assessment & Plan (1) Benign essential hypertension: Code(s): I10 - Essential (primary) hypertension Category: Medical Plan: Reinforced low sodium diet - goal is systolic BP of at least 130 to 140 mm or less Continue Amlodipine 5 mg QD and Losartan 100 mg QD - she was switched over from Lisinopril earlier this year due to side effects (recurrent cough) Patient is reminded to continue monitoring her blood pressure regularly (2) Pure hypercholesterolemia: Code(s): E78.00 - Pure hypercholesterolemia, unspecified Category: Medical Plan: Results of her labs done a few days ago reviewed and discussed with patient - have advised patient again that her cholesterol levels remain in the high normal range and are mostly unchanged from previous Reinforced low cholesterol diet Will recheck her labs and fasting lipids in 6 months for follow up (3) Vitamin D deficiency: Code(s): E55.9 - Vitamin D deficiency, unspecified Category: Medical Plan: Continue Vitamin D3 1000 units QD (4) Allergic rhinitis: Code(s): J30.9 - Allergic rhinitis, unspecified Category: Medical Qualifiers: Allergic rhinitis trigger: pollen Allergic rhinitis seasonality: seasonal Qualified Code(s): J30.1 - Allergic rhinitis due to pollen Plan: Continue Loratadine 10 mg QD PRN Will start patient additionally on Fluticasone 50 mcg nasal spray QD PRN Plan Follow up in 6 months Orders: Orders Complete Blood Count Auto Diff 6 Months D64.9 - Anemia, unspecified Lipid Panel 6 Months E78.00 - Pure hypercholesterolemia, unspecified Comprehensive [place]. Panel Fast 6 Months E78.00 - Pure hypercholesterolemia, unspecified UA CC w/rflx Micro + Cult 6 Months R30.0 - Dysuria Medications: New fluticasone propionate 50 mcg/actuation administer into each nostril 2 sprays intranasal DAILY PRN 16 grams 5RF nasal drainage/allergy 30 days
[2025-05-15 16:56] VITALS: BP 170/90
--- OUTSIDE RECORDS SUMMARY | 2025-05-16 06:54 | XMS_ITS ---
Author Organization Unknown ENCOUNTERS Encounter Performer Location Date Diagnosis Diagnosis Status Pre Admit [address] [id number] Outpatient [address] [address] [id number] [facility] Inpatient [facility] [address] [place] [id number] [place] Emergency [address] [id number] [facility] Emergency [address] [address] [id number] [place] *Note: Encounters from your own facility or health system may be excluded. Allergies, Adverse Reactions, Alerts Allergen Type Severity Identification Date Medications Name Date Quantity Days Supplied GPI Number
== END 2025-05-15 17:14 | disposition home or self-care (01) ==
LOC: HO.HMCH 16:09
PROVIDERS: PCP Internal Medicine; Visit Provider Internal Medicine
DX: I10 Essential (primary) hypertension (principal); E78.00 Pure hypercholesterolemia, unspecified; E55.9 Vitamin D deficiency, unspecified; J30.1 Allergic rhinitis due to pollen

== ENCOUNTER → 2025-05-15 16:08 | Outpatient (BNVA) | payer MEDICARE, SELFPAY | PROVIDERS: PCP Internal Medicine; Visit Provider Internal Medicine | DX: I10 Essential (primary) hypertension (principal); E78.00 Pure hypercholesterolemia, unspecified; E55.9 Vitamin D deficiency, unspecified; J30.1 Allergic rhinitis due to pollen | CPT/HCPCS: 96127; 99212 ==